=== PATIENT | female | born 1945 | race Caucasian/White ===

== ENCOUNTER → 2023-05-14 15:25 | Outpatient (REF) | payer MEDICARE, OTHER, SELFPAY ==
[2023-05-14 16:03] LABS: % Basophils 1.3 % (0-2); % Eosinophils 1.1 % (0-6); % Immature Granulocytes 0.2 % (0-0.5); % Lymphocytes 18.1 % (20.5-51.1); % Monocytes 8.9 % (1.7-9.3); % Neutrophils 70.4 % (42.2-75.2); Absolute Basophils 0.1 10^3/uL (0-0.2); Absolute Eosinophils 0.1 10^3/uL (0-0.7); Absolute Monocytes 0.5 10^3/uL (0.1-0.6); Absolute Neutrophils 3.9 10^3/uL (1.4-6.5); Hematocrit 39.3 % (37.0-47.0); Mean Corp Hgb Conc. 33.1 g/dL (33.0-37.0); Mean Corpuscular Hgb 30.1 pg (27.0-31.0); Mean Platelet Volume 11.4 fL (7.4-10.4); Nucleated Red Blood Cells % 0 %; Platelet Count 159 10^3/uL (130-400); Red Blood Cell Count 4.32 10^6/uL (4.20-5.40); Red Cell Dist. Width 17.2 % (11.5-14.5); White Blood Cell Count 5.6 10^3/uL (4.8-10.8)
[2023-05-14 16:20] LABS: ALT (SGPT) 24 U/L (0-35); AST (SGOT) 33 U/L (14-36); Albumin 4.1 g/dl (3.5-5.0); Alkaline Phosphatase 85 U/L (38-126); Blood Urea Nitrogen 29 mg/dl (7-17); Calcium 9.8 mg/dl (8.4-10.2); Carbon Dioxide 27 mmol/L (22-30); Chloride 101 mmol/L (98-107); Glucose 181 mg/dl (70-99); Potassium 4.9 mmol/L (3.5-5.1); Sodium 135 mmol/L (135-145); Total Bilirubin 0.9 mg/dl (0.2-1.3); Total Protein 7.5 g/dl (6.3-8.2); eGFR 51.11
[2023-05-14 16:50] LABS: TSH Reflex To Free T4 3.64 uIU/ml (0.47-4.68)
== END ==
LOC: RAD 15:25
PROVIDERS: ATTENDING PHYSICIAN Physician Assistant
DX: R06.02 Shortness of breath (principal); R53.1 Weakness; Z85.118 Personal history of other malignant neoplasm of bronchus and lung; Z87.891 Personal history of nicotine dependence; J02.9 Acute pharyngitis, unspecified; E03.9 Hypothyroidism, unspecified
CPT/HCPCS: 36415; 71046; 80053; 84443; 85025

== ENCOUNTER → 2023-06-14 11:29 | Outpatient (REF) | payer MEDICARE, OTHER, SELFPAY ==
[2023-06-14 12:32] LABS: Glycohemoglobin (HgbA1c) 6.6 % (4.0-5.6)
[2023-06-14 12:38] LABS: ALT (SGPT) 19 U/L (0-35); AST (SGOT) 29 U/L (14-36); Albumin 3.8 g/dl (3.5-5.0); Alkaline Phosphatase 65 U/L (38-126); Blood Urea Nitrogen 29 mg/dl (7-17); Calcium 9.1 mg/dl (8.4-10.2); Carbon Dioxide 25 mmol/L (22-30); Chloride 104 mmol/L (98-107); Glucose 154 mg/dl (70-99); HDL Cholesterol 81 mg/dl; LDL Cholesterol, Calculated 79 mg/dl; Potassium 4.9 mmol/L (3.5-5.1); Sodium 135 mmol/L (135-145); Total Bilirubin 0.7 mg/dl (0.2-1.3); Total Cholesterol 179 mg/dl (50-199); Total Protein 7.1 g/dl (6.3-8.2); Triglyceride 95 mg/dl (10-149); Very Low Density Lipoprotein 19 mg/dl (0-30); eGFR 45.76
[2023-06-14 13:08] LABS: TSH 3.87 uIU/ml (0.47-4.68)
== END ==
LOC: REG 11:29
PROVIDERS: ATTENDING PHYSICIAN Internal Medicine Endocrinology, Diabetes & Metabolism; FAMILY PHYSICIAN Nurse Practitioner Family
DX: E10.9 Type 1 diabetes mellitus without complications (principal); E06.3 Autoimmune thyroiditis
CPT/HCPCS: 36415; 80053; 80061; 83036; 84443

== ENCOUNTER → 2023-09-16 15:28 | Outpatient (REF) | payer MEDICARE, OTHER, SELFPAY ==
[2023-09-16 17:38] LABS: ALT (SGPT) 20 U/L (0-35); AST (SGOT) 32 U/L (14-36); Albumin 4.5 g/dl (3.5-5.0); Alkaline Phosphatase 76 U/L (38-126); Blood Urea Nitrogen 34 mg/dl (7-17); Calcium 10.4 mg/dl (8.4-10.2); Carbon Dioxide 28 mmol/L (22-30); Chloride 103 mmol/L (98-107); Glucose 86 mg/dl (70-99); Potassium 5.5 mmol/L (3.5-5.1); Sodium 140 mmol/L (135-145); Total Bilirubin 0.5 mg/dl (0.2-1.3); Total Protein 8.1 g/dl (6.3-8.2)
[2023-09-17 09:57] LABS: Glycohemoglobin (HgbA1c) 6.9 % (4.0-5.6)
== END ==
LOC: REG 15:28
PROVIDERS: ATTENDING PHYSICIAN Internal Medicine Endocrinology, Diabetes & Metabolism; FAMILY PHYSICIAN Nurse Practitioner Family
DX: E10.9 Type 1 diabetes mellitus without complications (principal)
CPT/HCPCS: 36415; 80053; 83036

== ENCOUNTER 2023-09-25 12:24 | Emergency (ER) | payer MEDICARE, OTHER, SELFPAY ==
[2023-09-25 12:32] VITALS: BP 144/82
[2023-09-25 12:43] VITALS: BMI 26.4
--- NOTE | 2023-09-25 12:59 | ED.GENMED ---
History of Present Illness
General
Chief Complaint: Musculo-Skeletal Complaint
Source: patient
Exam Limitations: none
Time Seen by Provider: 09/25/23 12:38
Nursing documentation reviewed up to this point in time: agreed with
History of Present Illness
History of Present Illness:
78-year-old female presents to the ER complaining of left wrist/hand injury. Patient is insulin-dependent diabetic for 50 years and her sugar read 'Low ' last night and she fell in her kitchen and hit her left hand. She ate dinner after . She
did not hit her head. She does complain of pain and swelling in her left hand area. She is right hand dominant.
Review of Systems
Review of Systems
Allergies reviewed?: Yes
All Other Systems: ROS reviewed and negative except as documented in HPI and ROS
Constitutional: Reports no symptoms; Denies fever, fatigue or chills
Musculoskeletal: Reports other (left hand swelling /pain )
Skin: Reports no symptoms
Neurological: Reports no symptoms
Psychiatric: Reports no symptoms
Phy Exam
General Physical Exam
General Presentation: no apparent distress
General age: appears stated age
General Skin: warm and dry
General Habitus: normal
General Mental: alert
General Hydration: appears well hydrated
Neurological Exam
Neurological Exam: alert and oriented x3
Skin Exam
Skin Exam: other (Left upper extremity strong pulses patient with obvious swelling to dorsal left hand no abrasions )
Psychiatric Exam
Psychiatric Exam: normal mood/affect
Course
Orders/Labs/Results
Orders:
Orders
09/25/23 12:37
Wrist, Left 3 Views CR [CR Wrist - Left Min 3 Views] Urgent
Comment:
Reason For Exam: injury
09/25/23 13:31
Splints/Slings/Crut- Treatment ONCE
Location: Left
Type of Splint: Thimb Spica
Vital Signs
Initial and Last Documented VS:
Initial Vital Signs
Temp Pulse Resp BP Pulse Ox
98 F 61 16 144/82 98
09/25/23 12:32 09/25/23 12:32 09/25/23 12:32 09/25/23 12:32 09/25/23 12:32
Last Documented Vital Signs
Temp Pulse Resp BP Pulse Ox
98 F 61 16 144/82 98
09/25/23 12:32 09/25/23 12:32 09/25/23 12:32 09/25/23 12:32 09/25/23 12:32
MDM/Problems Addressed
Differential Diagnosis Includes:
Not limited to hand/wrist sprain versus fracture fracture
MDM/Problems Addressed:
As documented patient is 78-year-old female who fell last night because her sugar was low. She is a insulin-dependent type 1 diabetic for 50 years had a monitor on her. She ate dinner afterwards and brought her sugar up. She however presents to
the ER because of continued left hand/wrist pain. She is tender throughout the dorsal left hand wrist. There is a questionable scaphoid fracture on x-ray will treat with a fiberglass splint, thumb spica close outpatient Ortho follow-up. She is
tender throughout the area there is swelling throughout the dorsal hand wrist as well. No head injury.
*Critical Care Note
Total Time (30-74mins, 75-104mins- exclusive of procedures): Not Applicable
ED Attending Note
-
Portions of this chart may have been created with voice recognition software.� Occasional wrong word or��sound alike� substitutions may have occurred due to the inherent limitations of voice recognition software.
Discharge Plan
Departure
Patient Disposition: Home (Routine Discharge)
Date of Disposition: 09/25/23
Time of Disposition: 13:35
Patient with high blood pressure during this ER visit?: Yes
Condition: Fair
Covid-19: Not Applicable
Discharge Problem:
Fracture of scaphoid
Instructions: Splint Care, Common Wrist Injuries ED
Prescriptions:
No Action
tramadol 50 mg Tablet
50 mg PO HS PRN (Reason: sleep)
levothyroxine 125 mcg Tablet
125 mcg PO DAILY
furosemide 20 mg Tablet
20 mg PO DAILY
magnesium 200 mg Tablet
400 mg PO QPM
alpha lipoic acid 300 mg Capsule
200 mg PO QPM
cholecalciferol (vitamin D3) [Vitamin D3] 125 mcg (5,000 unit) Tablet
5,000 unit PO QPM
melatonin 10 mg Tablet
10 mg PO QPM
Eliquis 5 mg Tablet
5 mg PO BID
Probiotic 3 billion cell Capsule
3,000 mmu cells PO QPM
coenzyme Q10 [CoQ-10] 100 mg Capsule
100 mg PO QPM
multivitamin Tablet
1 tab PO DAILY
biotin 1 mg Capsule
1 mg PO DAILY
insulin aspart U-100 [Novolog U-100 Insulin aspart] 100 unit/mL Solution
1 sliding scale dose continuous subcutaneous infusion DIRECTED
Rx Instructions:
18-25 units per day
Referrals:
Jody Guzman CRNP [Family Provider] -
Mack Key MD [Active] -
Activity Restrictions/Additional Instructions:
As discussed there is a questionable fracture of the scaphoid and wrist. You are tender throughout this region. For conservative treatment you are placed in a splint. Do not remove splint. Keep elevated. You may ice over the affected area.
Call orthopedics tomorrow for an appointment next 2 to 3 days and return if any worsening of symptoms.
Interventions
Interventions:
*Risk Screen - Suicide Last Done: 09/25/23 12:32
*General Assessment Last Done: 09/25/23 12:32
*Neglect/Abuse Screening Last Done: 09/25/23 12:32
ED- Fall Risk Assessment Last Done: 09/25/23 12:43
*ED COVID-19 Vaccine History Last Done: 09/25/23 12:43
ED-Musculoskeletal Assessment Last Done: 09/25/23 12:43
Discharge Date and Time
Print Language: GERMAN
== END 2023-09-25 14:25 | disposition home or self-care (01) ==
LOC: EMR 12:24
PROVIDERS: EMERGENCY PHYSICIAN Emergency Medicine; FAMILY PHYSICIAN Nurse Practitioner Family
DX: S62.002A Unspecified fracture of navicular [scaphoid] bone of left wrist, initial encounter for closed fracture (principal); W19.XXXA Unspecified fall, initial encounter; E10.9 Type 1 diabetes mellitus without complications
CPT/HCPCS: 99283; 73110

== ENCOUNTER → 2023-12-15 14:20 | Outpatient (REF) | payer MEDICARE, OTHER, SELFPAY ==
[2023-12-15 16:15] LABS: ALT (SGPT) 26 U/L (0-35); AST (SGOT) 35 U/L (14-36); Albumin 4.5 g/dl (3.5-5.0); Alkaline Phosphatase 63 U/L (38-126); Blood Urea Nitrogen 33 mg/dl (7-17); Calcium 9.7 mg/dl (8.4-10.2); Carbon Dioxide 25 mmol/L (22-30); Chloride 102 mmol/L (98-107); Glucose 165 mg/dl (70-99); HDL Cholesterol 98 mg/dl; LDL Cholesterol, Calculated 82 mg/dl; Sodium 140 mmol/L (135-145); Total Bilirubin 0.6 mg/dl (0.2-1.3); Total Cholesterol 202 mg/dl (50-199); Total Protein 7.6 g/dl (6.3-8.2); Triglyceride 111 mg/dl (10-149); Very Low Density Lipoprotein 22 mg/dl (0-30)
[2023-12-15 16:17] LABS: Microalbumin, Random Urine 0.9 mg/dl (0.6-1.7); Microalbumin/creatinine Ratio 13.1 mg/g
[2023-12-15 16:45] LABS: TSH 0.66 uIU/ml (0.47-4.68)
== END ==
LOC: REG 14:20
PROVIDERS: ATTENDING PHYSICIAN Internal Medicine Endocrinology, Diabetes & Metabolism; FAMILY PHYSICIAN Nurse Practitioner Family; REFERRING PHYSICIAN Internal Medicine Cardiovascular Disease
DX: E10.9 Type 1 diabetes mellitus without complications (principal)
CPT/HCPCS: 36415; 80053; 80061; 82043; 82570; 83036; 84443

== ENCOUNTER 2024-03-24 20:39 | Inpatient (IN) | payer MEDICARE, OTHER, SELFPAY ==
[2024-03-24] VITALS (14 sets, daily range): BP systolic 97–167; BP diastolic 11–119; BMI 18.5; BMI 20.5
[2024-03-24 14:38] LABS: % Basophils 0.8 % (0-2); % Eosinophils 0.2 % (0-6); % Immature Granulocytes 0.3 % (0-0.5); % Monocytes 6.3 % (1.7-9.3); % Neutrophils 77.4 % (42.2-75.2); Absolute Basophils 0.1 10^3/uL (0-0.2); Absolute Lymphocytes 0.9 10^3/uL (1.2-3.4); Absolute Monocytes 0.4 10^3/uL (0.1-0.6); Absolute Neutrophils 4.8 10^3/uL (1.4-6.5); Hematocrit 40.9 % (37.0-47.0); Hemoglobin 13.3 g/dL (12.0-16.0); Mean Corp Hgb Conc. 32.5 g/dL (33.0-37.0); Mean Corpuscular Hgb 30.3 pg (27.0-31.0); Mean Corpuscular Volume 93.2 fL (81.0-99.0); Nucleated Red Blood Cells % 0 %; Platelet Count 176 10^3/uL (130-400); Red Blood Cell Count 4.39 10^6/uL (4.20-5.40); Red Cell Dist. Width 16.1 % (11.5-14.5); White Blood Cell Count 6.2 10^3/uL (4.8-10.8)
--- NOTE | 2024-03-24 14:43 | ED.GENMED ---
History of Present Illness
General
Chief Complaint: Heart Rate Problem
Source: patient and family
Exam Limitations: none
Time Seen by Provider: 03/24/24 14:36
History of Present Illness
History of Present Illness:
See MDM
Past History
Past History
ED Past Medical History: Arrthythmia, Cancer and IDDM
ED Past Surgical History: Orthopedic
Social History
Tobacco: Non-smoker
Alcohol: None
Phy Exam
Physical Exam
Physical Exam:
See MDM
Course
Orders/Labs/Results
Orders:
Orders
03/24/24 13:49
EKG [Electrocardiogram (*1)] Urgent
Reason for Study: Tachycardia
EKG- Treatment ONCE
03/24/24 14:16
Complete Blood Count/With Diff Urgent
Comprehensive Metabolic Panel Urgent
Free T4 Urgent
Lipase Urgent
Comment: ADD ON
TSH Reflex To Free T4 Urgent
03/24/24 14:41
0.9% Sodium Chloride 1000 ml [Nss] 1,000 ml IV BOLUS
US Abdomen Complete/Upper Urgent
Comment:
Reason For Exam: RUQ pain
03/24/24 16:20
Add On- LAB Urgent
Tests Added?: Lipase
0.9% Sodium Chloride 1000 ml [Nss] 1,000 ml IV BOLUS
03/24/24 16:25
NT-proBNP Urgent
Comment: ADD ON
Troponin I Urgent
03/24/24 17:06
Add On- LAB Urgent
Tests Added?: pro BNP
Morphine Sulfate 2 mg IV NOW STA
Ondansetron Injectable [Zofran] 4 mg IV NOW STA
CR Chest - 2 Views Urgent
Comment:
Reason For Exam: SOB
03/24/24 17:36
CT Abd/pel Without Iv Or Oral Urgent
Comment:
Reason For Exam: general abd pain
Abnormal Lab Results
03/24/24
14:16
MCHC 32.5 L g/dL
(33.0-37.0)
RDW 16.1 H %
(11.5-14.5)
MPV 11.0 H fL
(7.4-10.4)
Absolute Lymphs (auto) 0.9 L 10^3/uL
(1.2-3.4)
Neutrophils % 77.4 H %
(42.2-75.2)
Lymphocytes % 15.0 L %
(20.5-51.1)
Potassium 5.6 H mmol/L
(3.5-5.1)
Carbon Dioxide 20 L mmol/L
(22-30)
BUN 47 H mg/dl
(7-17)
Creatinine 1.6 H mg/dL
(0.6-1.0)
Glucose 245 H mg/dl
(70-99)
AST 120 H U/L
(14-36)
ALT 70 H U/L
(0-35)
Alkaline Phosphatase 142 H U/L
(38-126)
Lipase 19 L U/L
(23-300)
TSH (Reflex) < 0.02 L uIU/ml
(0.47-4.68)
Free T4 2.58 H ng/dl
(0.78-2.19)
03/24/24 14:16
03/24/24 14:16
Vital Signs
Initial and Last Documented VS:
Initial Vital Signs
Temp Pulse Resp BP Pulse Ox
97.6 F 144 18 97/75 98
03/24/24 14:01 03/24/24 14:01 03/24/24 14:01 03/24/24 14:01 03/24/24 14:01
Last Documented Vital Signs
Temp Pulse Resp BP Pulse Ox
97.6 F 145 19 157/111 100
03/24/24 14:01 03/24/24 18:45 03/24/24 18:23 03/24/24 18:24 03/24/24 18:30
MDM/Problems Addressed
Differential Diagnosis Includes:
HPI and MDM Narrative:
78-year-old female presenting with palpitations. Patient noted the symptoms yesterday. This is associated with right shoulder pain, nausea and right upper abdominal pain. Exam, patient is clinically dry. Will start IV fluids. Patient has
significant amount of allergies which include allergies to both Cardizem and metoprolol.
Patient may require synchronized cardioversion.
Given the abdominal pain and shoulder pain, will obtain ultrasound rule out gallbladder pathology
Physical exam
General: Well appearing and non-toxic
HEENT: protecting airway. Dry mucous membranes
Neck: appears supple
CV: No evidence of cyanosis. Tachycardic and regular
Resp: No accessory muscle use
Abd: Non-distended. Right upper quadrant tenderness. No rebound
Extremities: No deformities
Neuro: alert
Psych: Normal affect
Skin: Intact
Problems Addressed including Acute and Chronic Conditions affecting care:
1. A-fib with RVR
Acuity: acute
Prognosis: unstable
Details: Patient may require synchronized cardioversion. Patient allergic to both metoprolol and Cardizem
2. Abdominal pain
Acuity: acute
Prognosis: stable
Details: Will obtain ultrasound to rule out gallbladder pathology
3. [ ]
Acuity: acute
Prognosis: stable
Details:
4. [ ]
Acuity: acute
Prognosis: stable
Details:
5. [ ]
Acuity:
Prognosis:
Details:
Updates
Given the persistent abdominal pain, CT was obtained. There is evidence of a loculated pleural effusion but no significant abdominal pathology to explain her pain. She is feeling better after morphine. Clinically, she is improving with IV fluids
even though x-ray concerning for pleural effusions.
I did offer and suggest synchronized cardioversion but patient declined as it has not helped in the past. Will admit for further evaluation. She will benefit from cardiac evaluation if she does not break on her own
In regards to her hyperglycemia, patient dosed herself with insulin and her insulin pump. At 7:15 PM, her pump is now stating that her sugar is 128. The insulin will help with the hyperglycemia and hyperkalemia
Differential Diagnosis (but not limited to): Acute calculus cholecystitis, A-fib with RVR, dehydration, hypothyroidism
Testing considered: CT abdomen/pelvis but will obtain ultrasound first
Drug therapy (if applicable): OTC meds, please see d/c instruction regarding Rx drugs
Amount and/or Complexity of Data Reviewed
Clinical info obtained from: Patient
External data reviewed: N/A
Labs I independently reviewed (but not limited to): Hyperglycemia, hyperkalemia
Radiology: X-ray independently reviewed: Chest x-ray consistent with right pleural effusion
Pulse Ox: not hypoxic
EKG independently reviewed: A-fib with RVR, normal axis, no STEMI
Publications Sales Representative: A-fib
Critical Care: N/A
Risk of Complication:
Social Determinants of health: Good social support
Discussed with other providers: Hospitalist
Escalation of Care includes Admit/Obs: given the pleural effusions and uncontrolled A-fib, will admit
Occasional wrong word or 'sound a like' substitutions may have occurred due to the inherent limitations of voice recognition software. Read the chart carefully and recognize, using context, where substitutions have occurred.
*Critical Care Note
Total Time (30-74mins, 75-104mins- exclusive of procedures): Not Applicable
ED Attending Note
-
Portions of this chart may have been created with voice recognition software.� Occasional wrong word or��sound alike� substitutions may have occurred due to the inherent limitations of voice recognition software.
Discharge Plan
Departure
Patient Disposition: Admit
Date of Disposition: 03/24/24
Time of Disposition: 19:16
Admit to: Telemetry
Presentation/result/management discussed w/ accepting MD/DO: Hospitalist
Discharge Problem:
A-fib, Pleural effusion, Acute hyperglycemia
Prescriptions:
No Action
tramadol 50 mg Tablet
50 mg PO HS PRN (Reason: sleep)
levothyroxine 125 mcg Tablet
125 mcg PO DAILY
furosemide 20 mg Tablet
20 mg PO DAILY
magnesium 200 mg Tablet
400 mg PO QPM
alpha lipoic acid 300 mg Capsule
200 mg PO QPM
cholecalciferol (vitamin D3) [Vitamin D3] 125 mcg (5,000 unit) Tablet
5,000 unit PO QPM
melatonin 10 mg Tablet
10 mg PO QPM
Eliquis 5 mg Tablet
5 mg PO BID
Probiotic 3 billion cell Capsule
3,000 mmu cells PO QPM
coenzyme Q10 [CoQ-10] 100 mg Capsule
100 mg PO QPM
multivitamin Tablet
1 tab PO DAILY
biotin 1 mg Capsule
1 mg PO DAILY
insulin aspart U-100 [Novolog U-100 Insulin aspart] 100 unit/mL Solution
1 sliding scale dose continuous subcutaneous infusion DIRECTED
Rx Instructions:
18-25 units per day
Referrals:
Jody Guzman CRNP [Family Provider] -
Interventions
Interventions:
*Risk Screen - Suicide Last Done: 03/24/24 14:01
*General Assessment Last Done: 03/24/24 14:01
*Neglect/Abuse Screening Last Done: 03/24/24 14:01
ED- Fall Risk Assessment Last Done: 03/24/24 14:45
*ED COVID-19 Vaccine History Last Done: 03/24/24 14:01
ED- Cardiac Assessment Last Done: 03/24/24 14:45
ED- Pulmonary Assessment Last Done: 03/24/24 14:45
Discharge Date and Time
Print Language: GERMAN
[2024-03-24 14:45] LABS: ALT (SGPT) 70 U/L (0-35); AST (SGOT) 120 U/L (14-36); Albumin 4.7 g/dl (3.5-5.0); Alkaline Phosphatase 142 U/L (38-126); Blood Urea Nitrogen 47 mg/dl (7-17); Calcium 10.1 mg/dl (8.4-10.2); Carbon Dioxide 20 mmol/L (22-30); Chloride 98 mmol/L (98-107); Estimated Creatinine Clearance -11 ml/min; Glucose 245 mg/dl (70-99); Potassium 5.6 mmol/L (3.5-5.1); Sodium 136 mmol/L (135-145); Total Bilirubin 1.3 mg/dl (0.2-1.3); Total Protein 7.8 g/dl (6.3-8.2)
[2024-03-24] MEDS: NSS 1000 IV ×3 (14:50→22:13)
[2024-03-24 15:24] LABS: TSH Reflex To Free T4 < 0.02 uIU/ml (0.47-4.68)
[2024-03-24 15:50] LABS: Free T4 2.58 ng/dl (0.78-2.19)
--- NOTE | 2024-03-24 16:52 | EDRN ---
Dr. Smith currently at the [facility] bedside
[2024-03-24 16:53] LABS: Lipase 19 U/L (23-300)
[2024-03-24 16:55] LABS: Troponin I < 0.012 ng/ml
[2024-03-24] MEDS: ZOFRAN 4 MG IV (17:26)
[2024-03-24] MEDS: MORPHINE SULFATE 2 MG IV (17:26)
[2024-03-24 17:28] LABS: NT-proBNP 3260 pg/ml
--- NOTE | 2024-03-24 17:30 | EDRN ---
this RN noticed that the pts Sp02 dipped to 91%, this RN notified Dr. Smith and the pt was placed on 3L NC, Sp02 came up to 96%
--- NOTE | 2024-03-24 18:24 | EDRN ---
the pts heart rate remains tachy in the 120-130's and occasionally the 150's, this RN notified Dr. Smith and no new orders were received, the pt is currently still on 3L NC and Sp02 is 99%, the pt is resting in stretcher in the lowest position,
side rails up x2, call chi within reach, HOB elevated, no s/s of distress, will continue to monitor the pt closely
--- NOTE | 2024-03-24 20:08 | HPS.HSE ---
Family Physician
-
Family Physician: ANA Peguero
Chief Complaint
-
Palpitations, Abdominal pain
History of Present Illness
Patient is an 78y F with PMH significant for A-Fib, hypothyroidism and Chua Syndrome who presents to ED complaining of palpitations and abdominal pain. Patient states that she noted racing heartbeat / palpitations yesterday and they have
persisted since that time. Today she noted pain in the LUQ area as well as the RUQ, R shoulder and R scapula areas. She felt nauseated - but had no emesis or diarrhea. With worsening symptoms patient presented to the ED for further evaluation and
treatment.
Patient notes prior history of atrial fibrillation. She is unfortunately intolerant of / allergic to metoprolol, diltiazem and amiodarone. She underwent ablation in March 2022 and states that she had no interim symptoms until yesterday.
Patient denies any recent cough, sore throat, fevers / chills, sick contacts, etc.
Medical History
Past Medical History
Past Medical History: Reports Other
Additional Past Medical History:
Paroxysmal Atrial Fibrillation
Hypothyroidism
DM-II
CKD III
RLE Fasciitis
Chua Syndrome
- Lung Cancer
- Colon Cancer
- Endometrial Cancer
Past Surgical History: Reports Other
Additional Past Surgical History:
Right Upper Lobectomy
Right Hemicolectomy
MARILYN / BSA
Multiple RLE Surgeries / I&D
Right Femur ORIF
DCCV x 3
PVI Ablation (03/2022)
Social History
Tobacco: Former Smoker (Patient unsure when she quit smoking.)
Alcohol: None
Drug: None
Family History
Family History: Not pertinent
Allergies / Home Medications
Allergies reflects when Allergies were last updated in [facility].
Home Medications with original date entered in [facility]
Allergy/Medication List:
Allergies
Allergy/AdvReac Type Severity Reaction Status Date / Time
acetaminophen Allergy GI upset Verified 03/24/24 14:03
diltiazem Allergy Hives Verified 03/24/24 14:03
dronedarone Allergy Hives Verified 03/24/24 14:03
gluten Allergy Hives Verified 03/24/24 14:03
Influenza Virus Vaccines Allergy Tongue/throat Verified 03/24/24 14:03
Swelling
Iodinated Contrast Media Allergy Hives Verified 03/24/24 14:03
latanoprost Allergy Hives Verified 03/24/24 14:03
metoprolol Allergy Hives Verified 03/24/24 14:03
naproxen [From Aleve] Allergy Hives Verified 03/24/24 14:03
povidone-iodine Allergy Blisters Verified 03/24/24 14:03
zinc Allergy Hives Verified 03/24/24 14:03
Home Medications
apixaban 5 mg tablet (Eliquis) 2.5 mg PO BID 04/10/22
levothyroxine 125 mcg tablet 125 mcg PO DAILY 04/10/22
insulin aspart U-100 100 unit/mL subcutaneous solution (Novolog U-100 Insulin aspart) 1 sliding scale dose continuous subcutaneous infusion DIRECTED 05/17/22
Review of Systems
-
History Source: Patient
A 12 point ROS was completed and negative except as noted: Yes
Constitutional: Denies Fever or Chills
EENT: Denies Sore Throat
Respiratory: Denies Cough or Trouble Breathing
Cardiac: Reports Palpitations; Denies Chest Pain, Diaphoresis or Syncope
Abdomen/GI: Reports Abdominal Pain and Nausea; Denies Vomiting, Diarrhea, Constipated, Bloody Stools, Black Stools or Anorexia
: Denies Dysuria, Frequency or Flank Pain
Musculoskeletal: Reports Joint Pain (R shoulder / scapula pain.); Denies Edema
Neurological: Denies Dizzy or Headache
Psych: Denies Depression or Anxiety
Physical Exam
Vital Signs
Vital Signs
Temp Pulse Resp BP Pulse Ox
97.6 F 145 19 157/111 100
03/24/24 14:01 03/24/24 18:45 03/24/24 18:23 03/24/24 18:24 03/24/24 18:30
Physical Exam
General: Other (78y F in no acute distress.)
HEENT: Other (Dry MM. Neck supple.)
Respiratory: Other (Few rales at both bases. No wheeze / rhonchi.)
Cardiac: S1/S2, Irregular Rhythm and Tachycardia; No Murmur
GI: Soft, Non Tender, Non Distended and Normal Bowel Sounds
Musculoskeletal: No Clubbing, No Cyanosis and No Edema
Neuro: AO x 3
Laboratory Results
-
03/24/24 14:16
03/24/24 14:16
Laboratory Results
Total Bilirubin 1.3 mg/dl (0.2-1.3) 03/24/24 14:16
AST 120 U/L (14-36) H 03/24/24 14:16
ALT 70 U/L (0-35) H 03/24/24 14:16
Alkaline Phosphatase 142 U/L (38-126) H 03/24/24 14:16
Troponin I < 0.012 ng/ml 03/24/24 16:25
Lipase 19 U/L (23-300) L 03/24/24 14:16
Impression/Plan
-
A/P: Patient is an 78y F with PMH significant for paroxysmal atrial fibrillation, DM-II and multiple malignancies who presents to ED complaining of palpitations and abdominal discomfort.
Paroxysmal Atrial Fibrillation with Rapid Ventricular Response
- Admit to IVU for further evaluation and treatment.
- Patient is unfortunately intolerant and / or allergic to most rate control strategies.
- She declined DCCV at present since it never worked in the past.
- Reviewed with Cardiology.
- Will give IV dose of digoxin now and follow for effect - additional doses may be necessary, but defer to Cardiology eval in AM.
- Monitor on tele for rate control / changes.
- Follow for any new / worsening symptoms.
- Continue Eliquis for stroke risk reduction.
Anion Gap Metabolic Acidosis
DIANA on CKD III
Hyperkalemia secondary to the above
- Patient clinically appears hypovolemic.
- R pleural fluid is chronic / unchanged.
- Continue IVF support and follow for changes in labs / lytes.
- Lactate / B-OH pending.
DM-II, Uncontrolled
- Continue home insulin pump for now.
- IVF support as noted above.
- DM COMPUTER SUPPORT ANALYST for pump recommendations.
- Update A1C.
Hypothyroidism
- Current TFTs suggest over-replacement of T4.
- Hold T4 supplementation acutely and then resume at decreased dose once rate control is achieved.
- Repeat TFTs in 4-6 weeks after dose change.
Abdominal Pain
Abnormal LFTs
- Symptoms seem c/w GB pathology given location (upper abdomen with R shoulder pain), associated nausea, etc.
- US and CT scan both proved unremarkable.
- Would check HIDA for further evaluation given suspicious symptoms.
Chua Syndrome
- History of multiple prior malignancies - none active at present.
- Chronic R lung changes on CXR and post-surgical changes noted on CT following previous cancer resections.
DVT Prophylaxis: Eliquis
Code Status: DNR
[2024-03-24 20:42] LABS: Lactic Acid 2.4 mmol/L (0.7-2.0)
[2024-03-24] MEDS: LANOXIN 250 MCG IV (20:45)
[2024-03-24 20:49] LABS: B-Hydroxybutyrate 0.18 mmol/L (0.02-0.27)
--- NOTE | 2024-03-24 21:22 | EDRN ---
patients daughter would like to be called with an update in the am --Tessie Oconnor at [phone]
[2024-03-24 22:09] LABS: Glucose - Point of Care 71 mg/dl (70-99)
[2024-03-24] MEDS: ELIQUIS 2.5 MG PO (23:16)
--- NOTE | 2024-03-24 23:18 | PTCARENOTE ---
received patient from the ED. AAOx3. denies any pain at this time. HR Afib on [id number]. patient asymptomatic. bp 148/83. patient denies feeling short of breath. appears mildly dyspneic. 94% on 3L NC. ambulated to the BR with a rolling walker;
steady on her feet. IVF at 100/hr started per order-see mar. reviewed plan of care with patient and verbalized understanding. NPO at midnight. educated patient to call RN with any changes.
patient states not taking evening dose of Eliquis. updated Nisreen Stuart LOCOMOTIVE ENGINEER ELECTRIC. order placed and given, see mar.
[2024-03-25] VITALS (11 sets, daily range): BP systolic 113–166; BP diastolic 75–111; BMI 20.5
[2024-03-25 03:36] LABS: Hematocrit 34.7 % (37.0-47.0); Hemoglobin 11.2 g/dL (12.0-16.0); Mean Corp Hgb Conc. 32.3 g/dL (33.0-37.0); Mean Corpuscular Hgb 29.8 pg (27.0-31.0); Mean Corpuscular Volume 92.3 fL (81.0-99.0); Mean Platelet Volume 10.8 fL (7.4-10.4); Platelet Count 159 10^3/uL (130-400); Red Blood Cell Count 3.76 10^6/uL (4.20-5.40); Red Cell Dist. Width 15.9 % (11.5-14.5); White Blood Cell Count 5.4 10^3/uL (4.8-10.8)
--- NOTE | 2024-03-25 03:53 | PTCARENOTE ---
patient NPO. discussed plan of care with Nisreen Stuart CUPROUS CHLORIDE OPERATOR. since patient NPO, patient was asked to turn off insulin pump. patient does not wish to turn off pump. 'i never do that.' educated patient to inform RN with any symptoms of low sugar.
verbalized understanding.
this morning, patient ambulated to the BR. when oob, HR 180s-190s on tele. patient denied any symptoms. assisted patient back to bed. bp 113/76. once in bed, patient states 'i can feel my heart racing.' HR lowered to 90s-120s Afib. bp 141/89.
patient states feeling better.
[2024-03-25 04:23] LABS: ALT (SGPT) 58 U/L (0-35); AST (SGOT) 66 U/L (14-36); Albumin 3.4 g/dl (3.5-5.0); Alkaline Phosphatase 110 U/L (38-126); Blood Urea Nitrogen 38 mg/dl (7-17); Calcium 8.7 mg/dl (8.4-10.2); Carbon Dioxide 22 mmol/L (22-30); Chloride 106 mmol/L (98-107); Direct Bilirubin 0.1 mg/dl (0.0-0.4); Estimated Creatinine Clearance 34 ml/min; Glucose 140 mg/dl (70-99); Potassium 5.1 mmol/L (3.5-5.1); Sodium 137 mmol/L (135-145); Total Bilirubin 0.5 mg/dl (0.2-1.3); Total Protein 6.2 g/dl (6.3-8.2); eGFR 45.76
[2024-03-25 06:34] LABS: Glucose - Point of Care 117 mg/dl (70-99)
--- NOTE | 2024-03-25 07:31 | CON.CAR ---
Addendum entered and electronically signed by Ant Wray MD 03/25/24 11:05:
I saw and examined the patient.
The GLOBAL REGULATORY LEAD or PA's note was reviewed and I agree with the note.
Comment: General: Well developed, well nourished in NAD.
Neck: Supple, no JVD, HJR, carotids +2 B/L, no bruits bilaterally.
Heart: Non displaced PMI, irregular, tachycardic, no murmurs, No S3, S4, no rubs.
Lungs: Clear to auscultation bilaterally, no wheeze, rhonchi, rubs bilaterally,
normal expiratory phase.
Abdomen: Normal bowel sounds, soft, non-tender, non-distended.
Extremities: No clubbing, cyanosis or edema bilaterally.
Neuro: Grossly nonfocal, awake, alert and oriented x3.
Meaghan has a history of A-fib status post ablation in March 2022 with multiple medication intolerances for A-fib. She felt something funny was going on in her heart. She did not have any palpitations. She was found to be in rapid A-fib. She
declined cardioversion in the ER
She continues to decline cardioversion. Her heart rate control is very poor in A-fib with heart rates as high as 200 with any activity. I do not think she will be able to be rate controlled with digoxin alone. I feel she should have
cardioversion. She will reconsider if heart rate is rapid on 1/3 AM. Will make n.p.o. for now. Will consider outpatient ablation but this could take at least 4 to 6 weeks.
Original Note:
Consultation
Consultation Request
Date/Time Consultation Requested: 03/24/24 at 2138
Date/Time Consultation Performed: 03/25/24 at 0808
Requesting Provider: Dr. Steven
Performing Provider: Dr. Wray
Reason for Consultation: Afib with RVR
Medical History
-
History of Present Illness:
Patient came to [facility] yesterday with right sided shoulder pain and abdominal pain and felt like her heart was beating irregularly, patient was admitted with DIANA and Afib and cardiology has been consulted. Patient has a h/o pAfib and has multiple
medication intolerances as noted above. Patient has also had previous CV at [facility]. Patient then had successful PVI at on 04/10/2022. Patient came to ER yesterday with an irregular feeling in her chest starting this past Friday, she did not
call a palpitations or racing heart, but felt that something unusual was going on in her chest. Additionally patient had a right upper quadrant radiating to the right shoulder pain and had nausea without vomiting. In [facility] ER patient
had DIANA with Cre of 1.6. Patient was admitted and had CT scan abd/pelvis that did not show acute findings. LFTs were elevated. Creatinine has improved to 1.2 with IVF's overnight. In ER patient was noted to be in AF with RVR. This is the
first documented recurrence of AF following PVI 04/10/2022. Patient has multiple medication intolerances and therefore was given digoxin 0.25 mg IV x 1 last night. Patient remains in AF today with rates greater than 150 at times. Patient also has
ongoing right upper quadrant and right shoulder discomfort and a HIDA scan is planned. She has not missed any doses of her Eliquis.
PMH:
Paroxysmal Afib
s/p PVI 04/10/22
allergy/intolerance to amiodarone, Multaq, Tikosyn, Cardizem, metoprolol
Chronic Eliquis OAC
h/o hypothyroid
elevated free T4, low TSH on labs 03/25/24
DM 2 on insulin pump
CKD 3a
Chua syndrome
s/p right hemicolectomy for colon cancer, s/p RU lobectomy for lung CA, s/p MARILYN-BSO for endometrial cancer
Past Medical History
Past Medical History: Other (in HPI)
Past Surgical History: Bowel Resection (for colon cancer), Cardiac (PVI 03/2022), Gynecological (MARILYN-BSO for endometrial cancer), Orthopedic and Other (RU lobectomy for cancer)
Social History
Tobacco: Former Smoker
Alcohol: None
Drug: None
Personal: Single
Family History
Family History: CAD and Cancer
Allergies / Home Medications
Allergy/AdvReac Type Severity Reaction Status Date / Time
acetaminophen Allergy GI upset Verified 03/24/24 14:03
diltiazem Allergy Hives Verified 03/24/24 14:03
dronedarone Allergy Hives Verified 03/24/24 14:03
gluten Allergy Hives Verified 03/24/24 14:03
Influenza Virus Vaccines Allergy Tongue/throat Verified 03/24/24 14:03
Swelling
Iodinated Contrast Media Allergy Hives Verified 03/24/24 14:03
latanoprost Allergy Hives Verified 03/24/24 14:03
metoprolol Allergy Hives Verified 03/24/24 14:03
naproxen [From Aleve] Allergy Hives Verified 03/24/24 14:03
povidone-iodine Allergy Blisters Verified 03/24/24 14:03
zinc Allergy Hives Verified 03/24/24 14:03
�Medication �Instructions �Recorded �Confirmed �Type
apixaban 5 mg tablet (Eliquis) 2.5 mg PO BID 04/10/22 03/24/24 History
levothyroxine 125 mcg tablet 125 mcg PO DAILY 04/10/22 03/24/24 History
insulin aspart U-100 100 unit/mL 1 sliding scale dose continuous 05/17/22 03/24/24 History
subcutaneous solution (Novolog subcutaneous infusion DIRECTED
U-100 Insulin aspart)
Review of Systems
-
History Source: Patient
All other systems: Negative unless noted
Physical Exam
Vital Signs
Temp Pulse Resp BP Pulse Ox
98.1 F 130 18 141/89 92
03/25/24 03:25 03/25/24 03:47 03/25/24 03:25 03/25/24 03:47 03/25/24 03:25
GEN: NAD. AAOx3
HEENT: EOMI, MMM
LUNGS: 3.5 L NC. CTA B/L, no wheezes/rales
CV: Afib on tele. Irreg irreg, S1/S2, no murmur
ABD: soft, BS+, NT, ND
EXT: No clubbing, cyanosis, lesions or edema B/L
NEURO: Gross non-focal
SKIN: Warm, dry and pink. No rash
Lab Results
03/25/24 03:14
03/25/24 03:14
Troponin I < 0.012 ng/ml 03/24/24 16:25
Nrw-G-[id number] Pept 3260 pg/ml 03/24/24 16:25
Impression / Plan
-
PCP: Jody Guzman GLOBAL REGULATORY LEAD at [facility]
Cardiology: Dr. Etienne at [facility]
EP: Dr. Radford
Impression:
Admitted with left shoulder pain, nausea, DIANA and Afib 03/24/24
DIANA
Afib with RVR
Right-sided abdominal pain
Elevated LFTs
Paroxysmal Afib
s/p PVI 04/10/22
allergy/intolerance to amiodarone, Multaq, Tikosyn, Cardizem, metoprolol
Chronic Eliquis OAC
h/o hypothyroid
elevated free T4, low TSH on labs 03/25/24
DM 2 on insulin pump
CKD 3a
Chua syndrome
s/p right hemicolectomy for colon cancer, s/p RU lobectomy for lung CA, s/p MARILYN-BSO for endometrial cancer
Echo 08/20/22: [facility] study, EF 55-60%, mild conc LVH, no significant valve disease
Plan:
-Patient came to [facility] yesterday with right sided shoulder pain and abdominal pain and felt like her heart was beating irregularly, patient was admitted with DIANA and Afib and cardiology has been consulted. Patient has a h/o pAfib and has multiple
medication intolerances as noted above. Patient has also had previous CV at [facility]. Patient then had successful PVI at on 04/10/2022. Patient came to ER yesterday with an irregular feeling in her chest starting this past Friday, she did not
call a palpitations or racing heart, but felt that something unusual was going on in her chest. Additionally patient had a right upper quadrant radiating to the right shoulder pain and had nausea without vomiting. In [facility] ER patient
had DIANA with Cre of 1.6. Patient was admitted and had CT scan abd/pelvis that did not show acute findings. LFTs were elevated. Creatinine has improved to 1.2 with IVF's overnight. In ER patient was noted to be in AF with RVR. This is the
first documented recurrence of AF following PVI 04/10/2022. Patient has multiple medication intolerances and therefore was given digoxin 0.25 mg IV x 1 last night. Patient remains in AF today with rates greater than 150 at times. Patient also has
ongoing right upper quadrant and right shoulder discomfort and a HIDA scan is planned. She has not missed any doses of her Eliquis.
-ECG and telemetry reviewed by me show AF with RVR
-This is the first documented recurrence of A-fib since PVI 04/10/2022. Patient is symptomatic and heart rates are not controlled despite digoxin 0.25 mg IV x 1 on 03/24/2024 PM.
-Ordered digoxin 0.5 mg IV x 1 now and digoxin 0.25 mg IV x 1 at 1400 to complete digoxin loading.
-Will plan on CV in the a.m.
-No missed doses of Eliquis
-Patient can follow-up with EP as an outpatient to discuss repeat ablation versus possible ablate and pace strategy given all the confounding factors. Reviewed these options with the patient and she is initially reluctant to even consider an ablate
and pace strategy, but would be interested in possible repeat PVI. Of note patient required cardiac MRI for anatomy prior to PVI due to inability to receive IV dye for traditional CT scan. Patient has an IV dye allergy.
-Agree with plans of primary service to check HIDA scan given elevated LFTs and RUQ pain.
-TSH is low and free T4 is high. Patient reports that Dr. Dow manages her history of hypothyroidism and that patient was told she cannot take her Synthroid dosing for the entire week once a week, so she describes a system of taking 7 Synthroid
tablets all at once on a Friday one week and then taking 6 Synthroid tablets on the Friday the next week and alternating [id number].
--- NOTE | 2024-03-25 08:10 | PTCARENOTE ---
patients pump was beeping, [id number].;/'
--- NOTE | 2024-03-25 08:10 | PTCARENOTE ---
Patients pump was beeping, left ant. INT infiltrated, D/C'd, and restart INT in left forearm #22P @ IV NSS at 100cc/hr. patient has her own insulin pump and is managing it herself. patient c/o no pain. patient remains NPO for hida scan. monitor
shows NSR/Afib, flips back and forth. patient remains on 3LNC, o2 sat 95%.
--- NOTE | 2024-03-25 08:48 | W.PN.HOSP.TC ---
Today's Communication/Plan
-
see bold
Assessment / Plan
Assessment / Plan
HPI: 78y F with PMH significant for A-Fib, hypothyroidism and Chua Syndrome who presents to ED complaining of palpitations and abdominal pain. Patient states that she noted racing heartbeat / palpitations yesterday and they have persisted
since that time. Today she noted pain in the LUQ area as well as the RUQ, R shoulder and R scapula areas. She felt nauseated - but had no emesis or diarrhea. With worsening symptoms patient presented to the ED for further evaluation and treatment.
Paroxysmal Atrial Fibrillation with Rapid Ventricular Response
- Appreciate cardiology input, continue digoxin
- Plan for cardioversion tomorrow, 03/26
- Continue Eliquis for stroke risk reduction.
Anion Gap Metabolic Acidosis
DIANA on CKD III
Hyperkalemia
- Hyperkalemia resolved, creatinine improving
- Continue IV fluids, trend creatinine, no nephrotoxic drugs/NSAIDs
DM-II, Uncontrolled
- Continue home insulin pump, carb controlled diet
- A1C7.0
Hypothyroidism
- Current TFTs suggest over-replacement of T4.
- Hold T4 supplementation acutely and then resume at decreased dose once rate control is achieved.
- Repeat TFTs in 4-6 weeks after dose change.
Abdominal Pain
Abnormal LFTs
- Symptoms seem c/w GB pathology given location (upper abdomen with R shoulder pain), associated nausea, etc.
- US and CT scan both proved unremarkable.
- HIDA neg, abdominal pain resolved
- LFTs improving, trend LFTs
Chua Syndrome
- History of multiple prior malignancies - none active at present.
- Chronic R lung changes on CXR and post-surgical changes noted on CT following previous cancer resections.
DVT Prophylaxis: Eliquis
Code Status: DNR
Total time spent to see the patient on the floor, examine the patient, review data and lab results, discuss treatment plan with patient, nursing staff around 51 minutes.
Physical Exam
General: No acute distress
HEENT: Normocephalic, Atraumatic, EOMI, MMM
Respiratory: Clear to Auscultation bilaterally
Cardiac: Normal S1/S2, Regular Rate and Rhythm
GI: Soft, Nontender, Nondistended, Normal Bowel Sounds
Extremities: No Clubbing, Cyanosis, or Edema
Neuro: Nonfocal/Grossly Intact
Psych: Calm, Cooperative
Derm: No Visible lesions
Anticipated Discharge: 24 - 48 hours
Subjective/Interval History
-
Date of Service: March 25, 2024
Patient complains of right shoulder pain. Denies abdominal pain. No chest pain, no shortness of breath. No palpitations. No fever, no vomiting.
Objective Data
-
Labs:
Laboratory Results
03/25/24
03:14
WBC 5.4
Hgb 11.2 L
Hct 34.7 L
Plt Count 159
Sodium 137
Potassium 5.1
Chloride 106
Carbon Dioxide 22
BUN 38 H
Creatinine 1.2 H
Glucose 140 H
Calcium 8.7
Total Bilirubin 0.5
AST 66 H
ALT 58 H
Alkaline Phosphatase 110
Vital Signs:
Vital Signs
Temp Pulse Resp BP Pulse Ox
97.4 F 130 16 141/89 97
03/25/24 07:43 03/25/24 03:47 03/25/24 07:43 03/25/24 03:47 03/25/24 07:43
I&O
03/24/24 03/25/24 03/26/24
06:59 06:59 06:59
Intake Total 150 / 150
Balance 150 / 150
--- NOTE | 2024-03-25 09:03 | PTCARENOTE ---
patients HR in the 200's when getting up to BSC, adamant about staying on BSC to void. patient returned back to bed and after 15minutes HR returned to 123 to 145. Digoxin IV ordered, given as ordered.
[2024-03-25] MEDS: NSS 1000 IV ×2 (09:08→22:53)
[2024-03-25] MEDS: PT'S OWN INSULIN PUMP - NovoLOG SC ×2 (09:08→13:44)
[2024-03-25] MEDS: FLUSH (NSS) 1 FLUSH IV (09:10)
[2024-03-25] MEDS: LANOXIN 500 MCG IV (09:10)
[2024-03-25] MEDS: PROTONIX IV IV (09:11)
[2024-03-25] MEDS: NSS (PRESERVATIVE FREE) IV (09:11)
[2024-03-25] MEDS: ELIQUIS 2.5 MG PO ×2 (09:12→19:51)
--- NOTE | 2024-03-25 10:56 | CM ---
Chart reviewed. Patient is independent of ADLS, lives with her daughter in a 3 [address], 1st floor set up, 0 SHIVAM, ambulates with a SPC and RW outside of the home. Patient is not current with VN. Plan is for the patient to return home. CM to follow
--- NOTE | 2024-03-25 12:32 | PN.DE.MGMTRT ---
Insulin Management
- -
03/25/2023 Diabetes Management Consult - Patient using insulin pump
Patient admitted 03/24 with tachycardia, nausea, r upper abdomen and r shoulder pain. PMH colon, endometrial and lunch CA, type 1 diabetes and COPD. A1C on admission 7%, cr 1.2, eGFR 45.76. Prior to admission was using the Tandem tslim insulin
pump with control IQ [employer]osoft XC infusion sets Novolog and DexCom G7. She sees Dr. Dow, endocrine, for ongoing diabetes management.
Patient is awake alert and oriented sitting in bed. NPO for procedure. Glucose per pump 117 at the time of my visit.
Glucose has ranged 71 to 117. Patient can continue to manage insulin pump and deliver meal and correction boluses. Pump worksheet at bedside.
Discussed with patients nurse.
Diabetes History
- -
Type of Diabetes: 1
Pre-Admission Diabetes Regimen
03/24/24 03/25/24
14:16 03:14
Creatinine 1.6 H 1.2 H
Lab Results
Hemoglobin A1c 7.0 % (4.0-5.6) H 03/25/24 03:14
Insulin Pump Settings
IP Diabetes Regimen
03/24/24 03/24/24 03/25/24
14:16 22:07 03:14
Glucose 245 H 140 H
POC Glucose 71
03/25/24
06:32
Glucose
POC Glucose 117 H
Meal type: Breakfast
Amount consumed: 0
Patient Education
[2024-03-25 13:41] LABS: Glucose - Point of Care 115 mg/dl (70-99)
[2024-03-25] MEDS: LANOXIN 250 MCG IV (14:09)
--- NOTE | 2024-03-25 14:11 | PTCARENOTE ---
Addendum entered by Francia Cleaning RN 03/25/24 15:04:
morphine 2mg IV given as ordered for right shoulder pain. patient able to ambulate to BSC, 2 steps and voided for first time today. IV NSS @ 100cc/hr remains on.
Original Note:
Digoxin IV given as ordered, HR remains 133. also patient c/o right shoulder pain, TT Dona GARY.
[2024-03-25] MEDS: MORPHINE SULFATE 2 MG IV (14:51)
[2024-03-25] MEDS: PT'S OWN INSULIN PUMP - NovoLOG 4.1 UNIT SC (17:10)
--- NOTE | 2024-03-25 17:33 | PTCARENOTE ---
decreased IV NSS to 60cc/hr as ordered.
[2024-03-25] MEDS: NSS IV (18:38)
[2024-03-25 21:21] LABS: Glucose - Point of Care 173 mg/dl (70-99)
[2024-03-25] MEDS: PT'S OWN INSULIN PUMP - NovoLOG 1 UNIT SC (22:52)
[2024-03-25] MEDS: ULTRAM 25 MG PO (22:53)
[2024-03-26] VITALS (7 sets, daily range): BP systolic 137–159; BP diastolic 75–111; BMI 20.9
--- NOTE | 2024-03-26 03:00 | PTCARENOTE ---
Assumed care of pt at change of shift. Afib on tele with HR 90s-low 100s at rest and up to 140s with activity. Pt w/ complaints of 8/10 R shoulder pain which she states is the same pain she has been having since admission. Meaghan Alvarado NP
notified and Tramadol ordered and administered per orders, see MAR. Pt OOB to commode with x1 assist and rolling walker. Plan of care discussed and pt verbalizes understanding of NPO status at midnight for cardioversion today. Call chi within
reach.
[2024-03-26 05:53] LABS: Blood Urea Nitrogen 26 mg/dl (7-17); Calcium 8.4 mg/dl (8.4-10.2); Carbon Dioxide 25 mmol/L (22-30); Chloride 107 mmol/L (98-107); Estimated Creatinine Clearance 42 ml/min; Glucose 109 mg/dl (70-99); Magnesium 1.9 mg/dl (1.6-2.3); Phosphorus 2.8 mg/dl (2.5-4.5); Potassium 4.8 mmol/L (3.5-5.1); Sodium 137 mmol/L (135-145); eGFR 56.95
--- NOTE | 2024-03-26 07:42 | PN.DE.MGMTRT ---
Insulin Management
- -
03/26/2024 Diabetes Management Consult - Patient using insulin pump Follow up
Patient admitted 03/24 with tachycardia, nausea, r upper abdomen and r shoulder pain. PMH colon, endometrial and lunch CA, type 1 diabetes and COPD. A1C on admission 7%, cr 1.2, eGFR 45.76. Prior to admission was using the Tandem tslim insulin
pump with control IQ [employer] XC infusion sets Novolog and DexCom G7. She sees Dr. Dow, endocrine, for ongoing diabetes management.
Patient is awake alert and oriented sitting in bed. Glucose per pump 109 at the time of my visit.
Glucose has ranged 117 to 173. Patient can continue to manage insulin pump and deliver meal and correction boluses. Pump worksheet at bedside.
Discussed with patients nurse.
Pump settings:
Basal Correction CHO target
12am .225 50 17 110
6AM .35 50 18 110
5PM .25 50 17 110
9pm .2 50 17 110
24 HOUR BASAL TOTAL 6.8
Diabetes History
- -
Type of Diabetes: 1
Pre-Admission Diabetes Regimen
03/26/24
05:07
Creatinine 1.0
Lab Results
Hemoglobin A1c 7.0 % (4.0-5.6) H 03/25/24 03:14
Insulin Pump Settings
IP Diabetes Regimen
03/25/24 03/25/24 03/26/24
13:40 21:20 05:07
Glucose 109 H
POC Glucose 115 H 173 H
Meal type: Dinner
Meal type: Breakfast
Amount consumed: 90%
Amount consumed: 0
Patient Education
[2024-03-26] MEDS: NSS (PRESERVATIVE FREE) 10 ML IV (07:45)
[2024-03-26] MEDS: PROTONIX IV 40 MG IV (07:45)
[2024-03-26] MEDS: ELIQUIS 2.5 MG PO ×2 (07:45→20:18)
[2024-03-26 07:52] LABS: Glucose - Point of Care 125 mg/dl (70-99)
--- NOTE | 2024-03-26 08:13 | PTCARENOTE ---
pt off unit for cardioversion.
--- NOTE | 2024-03-26 09:45 | W.PN.CARDCBS ---
Today's Communication / Plan
-
Successful direct-current cardioversion
Stop digoxin
Stable for discharge from my perspective
Should will follow-up with her primary tetryl boiling tub operator and can be reevaluated by electrophysiology at as an outpatient
Impression / Plan
-
PCP: Jody Guzman METEOROLOGICAL OBSERVER at [facility]
Cardiology: Dr. Etienne at [facility]
EP: Dr. Radford
Impression:
Admitted with left shoulder pain, nausea, DIANA and Afib 03/24/24
DIANA
Afib with RVR
Right-sided abdominal pain
Elevated LFTs
Paroxysmal Afib
s/p PVI 04/10/22
allergy/intolerance to amiodarone, Multaq, Tikosyn, Cardizem, metoprolol
Chronic Eliquis OAC
h/o hypothyroid
elevated free T4, low TSH on labs 03/25/24
DM 2 on insulin pump
CKD 3a
Chua syndrome
s/p right hemicolectomy for colon cancer, s/p RU lobectomy for lung CA, s/p MARILYN-BSO for endometrial cancer
Echo 08/20/22: [facility] study, EF 55-60%, mild conc LVH, no significant valve disease
Patient came to [facility] yesterday with right sided shoulder pain and abdominal pain and felt like her heart was beating irregularly, patient was admitted with DIANA and Afib and cardiology has been consulted. Patient has a h/o pAfib and has multiple
medication intolerances as noted above. Patient has also had previous CV at [facility]. Patient then had successful PVI at on 04/10/2022. Patient came to ER yesterday with an irregular feeling in her chest starting this past Friday, she did not
call a palpitations or racing heart, but felt that something unusual was going on in her chest. Additionally patient had a right upper quadrant radiating to the right shoulder pain and had nausea without vomiting. In [facility] ER patient
had DIANA with Cre of 1.6. Patient was admitted and had CT scan abd/pelvis that did not show acute findings. LFTs were elevated. Creatinine has improved to 1.2 with IVF's overnight. In ER patient was noted to be in AF with RVR. This is the
first documented recurrence of AF following PVI 04/10/2022. Patient has multiple medication intolerances and therefore was given digoxin 0.25 mg IV x 1 last night. Patient remains in AF today with rates greater than 150 at times. Patient also has
ongoing right upper quadrant and right shoulder discomfort and a HIDA scan is planned. She has not missed any doses of her Eliquis.
Plan:
-Presenting with AFRVR not well controlled despite addition of digoxin - will stop digoxin
-Underwent successful DCCV this AM
-Cont Eliquis
-Patient can follow-up with EP as an outpatient to discuss repeat ablation versus possible ablate and pace strategy given all the confounding factors. Reviewed these options with the patient and she is initially reluctant to even consider an ablate
and pace strategy, but would be interested in possible repeat PVI. Of note patient required cardiac MRI for anatomy prior to PVI due to inability to receive IV dye for traditional CT scan. Patient has an IV dye allergy.
-TSH is low and free T4 is high. Patient reports that Dr. Dow manages her history of hypothyroidism and that patient was told she cannot take her Synthroid dosing for the entire week once a week, so she describes a system of taking 7 Synthroid
tablets all at once on a Friday one week and then taking 6 Synthroid tablets on the Friday the next week and alternating [id number].
Stable for discharge from my perspective
Should follow-up with her primary tetryl boiling tub operator
Progress Note - Glaze Sprayer
Subjective
Date of Service: March 26, 2024
No acute overnight events. Heart rate remained rapid overnight despite digoxin. Underwent direct-current cardioversion this morning, seen postprocedure. Tells me she feels much better back in sinus rhythm.
Objective
Labs:
03/25/24 03:14
03/26/24 05:07
Labs
Hgb 11.2 g/dL (12.0-16.0) L 03/25/24 03:14
Hct 34.7 % (37.0-47.0) L 03/25/24 03:14
Plt Count 159 10^3/uL (130-400) 03/25/24 03:14
Sodium 137 mmol/L (135-145) 03/26/24 05:07
Potassium 4.8 mmol/L (3.5-5.1) 03/26/24 05:07
BUN 26 mg/dl (7-17) H 03/26/24 05:07
Creatinine 1.0 mg/dL (0.6-1.0) 03/26/24 05:07
Glucose 109 mg/dl (70-99) H 03/26/24 05:07
Troponins
03/24/24 03/24/24
14:16 16:25
Troponin I Cancelled < 0.012
Vital Signs and I&O:
Vital Signs
Temp Pulse Resp BP Pulse Ox
97.9 F 122 20 157/102 97
03/26/24 07:29 03/26/24 06:00 03/26/24 07:29 03/26/24 04:59 03/26/24 07:29
Vital Signs
Temp Pulse Resp BP Pulse Ox
97.9 F 122 20 157/102 97
03/26/24 07:29 03/26/24 06:00 03/26/24 07:29 03/26/24 04:59 03/26/24 07:29
Intake & Output
03/24/24 03/25/24 03/26/24 03/27/24
06:59 06:59 06:59 06:59
Intake Total 150 / 150 1340 / 1340
Output Total 1325 / 1325
Balance 150 / 150 15 / 15
Physical Exam
Physical Exam
Gen: NAD, AAOx3
HEENT: NC/AT, sclera anicteric
Neck: No JVD
CV: RRR, NL s1/s2, no M/R/G
Lungs: CTAB
Abd: S/ND
Ext: No LE edema
Skin: Warm, dry
Neuro: Non-focal
[2024-03-26] MEDS: PT'S OWN INSULIN PUMP - NovoLOG SC ×3 (10:11→23:23)
--- NOTE | 2024-03-26 10:51 | PTCARENOTE ---
pt back from CV. pt is now sr w/ PACs, vss. 92% on 3LO2. pt resting in bed comfortably. pt educated on plan of care. notified dr. elkins due to not being able to wean pt off 02. call chi within reach.
--- NOTE | 2024-03-26 11:44 | CM ---
Chart reviewed. Patient is independent of ADLS, lives with her daughter in a 3 [address], 1st floor set up, ambulates with a RW and SPC. Patient is not current with VN and is not interested. Plan is for the patient to return home. CM to follow
--- NOTE | 2024-03-26 15:25 | CON.PUL ---
Consultation
Consultation Request
Date/Time Consultation Requested: 03/26/2024 - 144
Date/Time Consultation Performed: 03/26/2024 - 151
Requesting Provider: Dr. Steven
Performing Provider: Dr. Reveles
Reason for Consultation: Hypoxia
Medical History
-
Chief Complaint: Right shoulder pain and heart is racing/nausea
History of Present Illness:
78-year-old female former tobacco smoker with a past medical history of severe COPD, A-fib on Eliquis, chronic HFpEF, history of lung SCC, DM type II, history of colon cancer, and CKD who presented with right shoulder pain, a racing heart and
nausea. 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 EKG showed rapid A-fib. Cardiology consulted and cardioversion was arranged. She underwent cardioversion on 03/26/2024. She has continued to require
supplemental oxygen; CXR on 03/26/2024 showed subtle increased interstitial markings within the left lower lobe suggesting interstitial fibrosis. Pulmonary service consulted for additional management/recommendations.
When I saw the patient she was resting in bed in no acute distress. She was currently on room air but saturations were 80%. RN then placed her back onto oxygen with saturations improving back to the low 90s with 1 L/min. She still endorses
right-sided shoulder pain in the back of her shoulder. SOB has improved and she denies SOB currently. Also denies chest pain, SHETTY, abdominal pain, nausea, vomiting, fevers or chills. She says she had a wood-burning stove as a child. She tells me
she quit smoking in the 1970s.
Patient follows with us in the [facility] office with last visit on 10/15/[address] Stevens. She has a history of squamous cell carcinoma stage III, diagnosed in April 2022. She was intolerant of Keytruda. Also has history of A-fib follows with
cardiology (Dr. Radford). Has prior 29-phth-enhz smoking history, quit about 30 years ago. She does have a history of COPD but did not want to start inhalers as she was worried about her heart rate getting worse. She did not have any pulmonary
symptoms at that time although when she was walking she clearly was wheezing and short of breath. According to the family, her difficulty breathing with ambulation is chronic and present for many years. The patient is unaware of her dyspnea. She
was told to follow-up in July 2023 but this never happened. Her spirometry on file is from 04/17/2022 showing severe COPD with postbronchodilator FEV1: 0.8 L / 36% predicted. She also has a mild�moderate restrictive lung defect with
postbronchodilator FVC: 1.74 L / 59% predicted.
PMHx: Severe COPD not on inhalers, hypothyroidism, A-fib on Eliquis, CHF, history of lung squamous cell carcinoma intolerant to Keytruda, DM type II with insulin pump, history of colon cancer, history of Chua syndrome
PSHx: Laminectomy, hip surgery, hysterectomy, ORIF of bone fracture, bronchoscopy
Past Medical History
Past Medical History: Other (Above as per HPI)
Past Surgical History: Other (Above as per HPI)
Social History
Tobacco: Former Smoker (71-mbwh-hids history, quit about 32 years ago)
Alcohol: None
Drug: None
Family History
Family History: CAD (Father + mother), Cancer (Mother: Colon cancer) and Other (Brother: Celiac disease; father + mother: History of CVA)
Allergies / Home Medications
Allergies
Allergy/AdvReac Type Severity Reaction Status Date / Time
acetaminophen Allergy GI upset Verified 03/24/24 14:03
diltiazem Allergy Hives Verified 03/24/24 14:03
dronedarone Allergy Hives Verified 03/24/24 14:03
gluten Allergy Hives Verified 03/24/24 14:03
Influenza Virus Vaccines Allergy Tongue/throat Verified 03/24/24 14:03
Swelling
Iodinated Contrast Media Allergy Hives Verified 03/24/24 14:03
latanoprost Allergy Hives Verified 03/24/24 14:03
metoprolol Allergy Hives Verified 03/24/24 14:03
naproxen [From Aleve] Allergy Hives Verified 03/24/24 14:03
povidone-iodine Allergy Blisters Verified 03/24/24 14:03
zinc Allergy Hives Verified 03/24/24 14:03
Home Medications
�Medication �Instructions �Recorded �Confirmed �Last Taken �Type
apixaban 5 mg tablet (Eliquis) 2.5 mg PO BID Blood Clot 04/10/22 03/24/24 05/13/22 History
Prevention/Tx
levothyroxine 125 mcg tablet 125 mcg PO DAILY Thyroid 04/10/22 03/24/24 05/17/22 05:03 History
insulin aspart U-100 100 unit/mL 1 sliding scale dose continuous 05/17/22 03/24/24 05/17/22 History
subcutaneous solution (Novolog subcutaneous infusion DIRECTED
U-100 Insulin aspart) Diabetes
Review of Systems
-
History Source: Patient
All other systems: Negative unless noted
Vitals / Labs / Diagnostic Testing
Vital Signs
Temp Pulse Resp BP Pulse Ox
98.2 F 83 20 159/75 92
03/26/24 15:36 03/26/24 18:00 03/26/24 15:36 03/26/24 15:44 03/26/24 15:36
Lab Data
03/25/24 03:14
03/26/24 05:07
Diagnostic Testing:
Physical Exam
-
HEENT: Normocephalic and Anicteric
Cardiovascular: S1/S2, Regular Rhythm and Peripheral Edema (negative)
Respiratory: Wheeze (negative), Rales (Bibasilar), Rhonchi (negative) and Non-Labored Respirations
GI: Soft, Non Distended, Non Tender and Normal Bowel Sounds
Neurology: AO x 3 and Tremors (negative)
Skin: Warm and Dry
General: Respiratory Distress (negative), Comfortable, Fever (negative) and Chills (negative)
Assessment
-
Assessment: 78-year-old female former tobacco smoker with a past medical history of severe COPD, A-fib on Eliquis, chronic HFpEF, history of lung SCC, DM type II, history of colon cancer, and CKD who presented with right shoulder pain, a racing
heart and nausea. 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 EKG showed rapid A-fib. Cardiology consulted and cardioversion was arranged. She underwent cardioversion on 03/26/2024. She has continued to
require supplemental oxygen; CXR on 03/26/2024 showed subtle increased interstitial markings within the left lower lobe suggesting interstitial fibrosis. Pulmonary service consulted for additional management/recommendations.
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
Impression:
#Centrilobular emphysema with severe COPD (via spirometry from 04/17/2022) - not on maintenance inhalers as patient had declined previously due to fear of worsening heart rate
#Mild�moderate restrictive lung defect (post-BD FVC: 1.74 L/59% predicted via spirometry from 04/17/2022)
#History of lung squamous of carcinoma s/p right upper lobe lobectomy
#Rapid A-fib with history of ablation s/p cardioversion done today (03/26/2024)
#Acute anemia
#Primary hyperthyroidism likely due to exogenous use (TSH: <0.02, free T4: 2.58)
#History of colon cancer
#DM type II
#Former tobacco use (96-ovhm-adhq history, quit about 32 years ago)
Plan:
- She does not have any significant interstitial lung disease as recent PET/CT from 10/09/2023 did not show any evidence of interstitial lung disease
- The interstitial prominence seen in the left lower lobe currently is likely due to interstitial edema
- She does, however, have a history of severe COPD and this is likely why she is hypoxic currently, in addition to this right lower lobe pleural effusion, however this is small and unlikely to be significantly contributing to her hypoxia/SOB
- Re-check CT Chest to further assess lung parenchyma
- She does have chronic SOB with wheezing and dyspnea on exertion but the patient is not bothered by this as it is chronic and has been present for many years
- She does not take any maintenance inhalers as she does not wanted to affect her heart rate, however in the setting of her current hypoxia I think it is reasonable to start her on nebulized bronchodilators at this time
- I will start her on Xopenex/Atrovent and upon discharge we should send her home on a LABA/LAMA with Stiolto versus Anoro with prn Airsupra vs Albuterol
- prn nebulized bronchodilators while she remains hospitalized � not currently bronchospastic
- She should continue following up with us in the pulmonary office as last visit was in September [address] Stevnes
- She needs updated PFTs and 6 MWT
- Maintain SpO2 88-95% with supplemental O2 and wean as tolerated
- She will need a walking pulse oximetry prior to discharge
- Her TFTs show an elevated free T4 with undetectable TSH level; levothyroxine home dose is currently being held, this should be adjusted prior to restarting with dose lowered and repeat TFTs as an outpatient in about 6 weeks
- Perhaps this was an underlying etiology for her rapid A-fib
- Trend H/H and transfuse to keep her Hb>7g/dL
- Incentive spirometer q1hr while awake
- Replete electrolytes with K>4, Mg>2
- Maintain euglycemia with goal BG >100 and <180
- DVT ppx: Eliquis
Pulmonary service will continue to follow along. Outpatient follow-up will be arranged as last visit was on 10/15/[address] Stevens.
Data:
Echo 08/20/22: GVH study, EF 55-60%, mild conc LVH, no significant valve disease
CXR 03/26/2024:
Status post partial right lung resection with stable appearance from recent radiograph of March 24, 2024.
There is a small left pleural effusion, new since recent radiograph.
Subtle increased interstitial markings within the left lower lung. This may represent interstitial fibrosis. Interstitial edema seems less likely with fairly distinct appearance of the central pulmonary vasculature.
Total time spent today was 56 minutes for this encounter. Time includes reviewing laboratory test/imaging results, reviewing pertinent medical records, obtaining and reviewing medical history, performing an appropriate exam, ordering medications,
tests and procedures. Time also includes documentation of this encounter, coordinating patient care and communicating with other healthcare professionals. Total time does not include separately billed tests performed on this date of service.
--- NOTE | 2024-03-26 15:58 | W.PN.HOSP.TC ---
Today's Communication/Plan
-
Check chest CT, consult pulmonology
Assessment / Plan
Assessment / Plan
HPI: 78y F with PMH significant for A-Fib, hypothyroidism and Chua Syndrome who presents to ED complaining of palpitations and abdominal pain. Patient states that she noted racing heartbeat / palpitations yesterday and they have persisted
since that time. Today she noted pain in the LUQ area as well as the RUQ, R shoulder and R scapula areas. She felt nauseated - but had no emesis or diarrhea. With worsening symptoms patient presented to the ED for further evaluation and treatment.
#Acute hypoxic respiratory insufficiency
- Currently requiring 2 L of oxygen, she does not wear oxygen at home
- Chest x-ray shows partial right lung resection, subtle increased interstitial markings within the left lower lobe which could represent interstitial fibrosis
- Check chest CT, consult pulmonology
Paroxysmal Atrial Fibrillation with Rapid Ventricular Response
- Appreciate cardiology input
- Status post cardioversion 03/26, currently in normal sinus rhythm
- Continue Eliquis for stroke risk reduction
- Cardiology recommends stopping digoxin, follow-up with cardiology in the office
Anion Gap Metabolic Acidosis
DIANA on CKD III
Hyperkalemia
- Hyperkalemia resolved, creatinine improving
- DIANA resolved status post IV fluid
DM-II, Uncontrolled
- Continue home insulin pump, carb controlled diet
- A1C7.0
Hypothyroidism
- Current TFTs suggest over-replacement of T4.
- Hold T4 supplementation acutely and then resume at decreased dose once rate control is achieved.
- Repeat TFTs in 4-6 weeks after dose change.
Abdominal Pain
Abnormal LFTs
- Symptoms seem c/w GB pathology given location (upper abdomen with R shoulder pain), associated nausea, etc.
- US and CT scan both proved unremarkable.
- HIDA neg, abdominal pain resolved
- LFTs improving, trend LFTs
Chua Syndrome
- History of multiple prior malignancies - none active at present.
- Chronic R lung changes on CXR and post-surgical changes noted on CT following previous cancer resections.
DVT Prophylaxis: Eliquis
Code Status: DNR
Total time spent to see the patient on the floor, examine the patient, review data and lab results, discuss treatment plan with patient, nursing staff around 50 minutes.
Physical Exam
General: No acute distress
HEENT: Normocephalic, Atraumatic, EOMI, MMM
Respiratory: Clear to Auscultation bilaterally
Cardiac: Normal S1/S2, Regular Rate and Rhythm
GI: Soft, Nontender, Nondistended, Normal Bowel Sounds
Extremities: No Clubbing, Cyanosis, or Edema
Neuro: Nonfocal/Grossly Intact
Psych: Calm, Cooperative
Derm: No Visible lesions
Anticipated Discharge: Within 24 hours
Subjective/Interval History
-
Date of Service: March 26, 2024
Patient had successful cardioversion this morning. Denies shortness of breath. She had some right shoulder pain, resolved. No nausea, no vomiting. No abdominal pain. No fever.
Objective Data
-
Labs:
Laboratory Results
03/26/24
05:07
Sodium 137
Potassium 4.8
Chloride 107
Carbon Dioxide 25
BUN 26 H
Creatinine 1.0
Glucose 109 H
Calcium 8.4
Vital Signs:
Vital Signs
Temp Pulse Resp BP Pulse Ox
98.2 F 122 20 157/102 92
03/26/24 15:36 03/26/24 06:00 03/26/24 15:36 03/26/24 04:59 03/26/24 15:36
I&O
03/25/24 03/26/24 03/27/24
06:59 06:59 06:59
Intake Total 150 / 150 1340 / 1340 180 / 180
Output Total 1325 / 1325 350 / 350
Balance 150 / 150 15 15 -170 / -170
[2024-03-26 16:14] LABS: Glucose - Point of Care 125 mg/dl (70-99)
[2024-03-26] MEDS: PT'S OWN INSULIN PUMP - NovoLOG 3.33 UNIT SC (16:15)
[2024-03-26] MEDS: ULTRAM 25 MG PO (16:51)
[2024-03-26] MEDS: XOPENEX 1.25 MG INHALANT SOLUTION INH (19:16)
[2024-03-26] MEDS: ATROVENT NEBULES 0.5 MG INH (19:16)
[2024-03-26 21:35] LABS: Glucose - Point of Care 143 mg/dl (70-99)
[2024-03-26] MEDS: ULTRAM 50 MG PO (23:22)
--- NOTE | 2024-03-27 04:59 | PTCARENOTE ---
Pt received at change of shift. NSR with PACs on tele with HR 70s. Pt with complaints of 9/10 right shoulder pain unrelieved by the tramadol she received at 1651. Nisreen Stuart NP notified, one time dose of Tramadol ordered and administered
per orders. Pt offers no further complaints at this time. Can make needs known. Call chi within reach.
[2024-03-27 05:58] VITALS: BP 159/83
[2024-03-27 06:00] VITALS: BMI 20.8
[2024-03-27 06:34] LABS: Blood Urea Nitrogen 20 mg/dl (7-17); Calcium 8.8 mg/dl (8.4-10.2); Carbon Dioxide 26 mmol/L (22-30); Chloride 103 mmol/L (98-107); Estimated Creatinine Clearance 46 ml/min; Glucose 115 mg/dl (70-99); Sodium 137 mmol/L (135-145); eGFR > 60.00
[2024-03-27 06:39] LABS: Potassium 4.6 mmol/L (3.5-5.1)
[2024-03-27 06:47] VITALS: BP 166/67
[2024-03-27 06:50] LABS: Glucose - Point of Care 109 mg/dl (70-99)
[2024-03-27] MEDS: ATROVENT NEBULES 0.5 MG INH (07:16)
[2024-03-27] MEDS: XOPENEX 1.25 MG INHALANT SOLUTION INH ×2 (07:16→14:22)
--- NOTE | 2024-03-27 07:39 | W.PN.HOSP.TC ---
Addendum entered and electronically signed by Bassam Steven MD 03/28/24 10:36:
Patient is in need of oxygen at 3 liters/minute via nasal cannula continuously due to pulse oximetry of 87% on room air at rest. Oxygen will help to improve hypoxemia. Patient is mobile within the home. DuoNeb therapy has been tried and is
ineffective in treating hypoxemia related symptoms. Oxygen is needed to improve symptoms.
Original Note:
Today's Communication/Plan
-
Discharge tomorrow
Assessment / Plan
Assessment / Plan
HPI: 78y F with PMH significant for A-Fib, hypothyroidism and Chua Syndrome who presents to ED complaining of palpitations and abdominal pain. Patient states that she noted racing heartbeat / palpitations yesterday and they have persisted
since that time. Today she noted pain in the LUQ area as well as the RUQ, R shoulder and R scapula areas. She felt nauseated - but had no emesis or diarrhea. With worsening symptoms patient presented to the ED for further evaluation and treatment.
#Acute hypoxic respiratory insufficiency
- Currently requiring 1 L of oxygen, down from 3 L of oxygen, she does not wear oxygen at home
- Chest x-ray shows partial right lung resection, subtle increased interstitial markings within the left lower lobe which could represent interstitial fibrosis
- Chest CT shows neg for interstitial fibrosis, shows mod loculated right pleural effusion, progressed, mod emphysematous disease
- Appreciate pulmonology input, suspect hypoxia secondary to her COPD
- Pulmonology states chronic lower effusion likely worse due to recent atrial fibrillation and perhaps some degree of volume overload
- Pulmonology started bronchodilators, recommends checking oxygen prescription eval tomorrow, and discharge home with bronchodilators
- Follow-up with pulmonology in the office
Paroxysmal Atrial Fibrillation with Rapid Ventricular Response
- Appreciate cardiology input
- Status post cardioversion 03/26, currently in normal sinus rhythm
- Continue Eliquis for stroke risk reduction
- Cardiology recommends stopping digoxin, follow-up with cardiology in the office
Anion Gap Metabolic Acidosis
DIANA on CKD III
Hyperkalemia
- Hyperkalemia resolved, creatinine improving
- DIANA resolved status post IV fluid
DM-II, Uncontrolled
- Continue home insulin pump, carb controlled diet
- A1C7.0
Hypothyroidism
- Current TFTs suggest over-replacement of T4.
- Hold T4 supplementation acutely and then resumed at decreased dose of 100 mcg daily, down from 125
- Repeat TFTs in 4-6 weeks after dose change.
Abdominal Pain
Abnormal LFTs
- Symptoms seem c/w GB pathology given location (upper abdomen with R shoulder pain), associated nausea, etc.
- US and CT scan both proved unremarkable.
- HIDA neg, abdominal pain resolved
- LFTs improving, trend LFTs
Right shoulder pain
-Suspect secondary to arthritis versus rotator cuff pathology
� Check right shoulder x-ray
� Continue home tramadol as needed
Chua Syndrome
- History of multiple prior malignancies - none active at present.
- Chronic R lung changes on CXR and post-surgical changes noted on CT following previous cancer resections.
DVT Prophylaxis: Eliquis
Code Status: DNR
Updated daughter Olivia on phone 03/27, all questions answered
Total time spent to see the patient on the floor, examine the patient, review data and lab results, discuss treatment plan with patient, nursing staff around 51 minutes.
Physical Exam
General: No acute distress
HEENT: Normocephalic, Atraumatic, EOMI, MMM
Respiratory: Clear to Auscultation bilaterally
Cardiac: Normal S1/S2, Regular Rate and Rhythm
GI: Soft, Nontender, Nondistended, Normal Bowel Sounds
Extremities: No Clubbing, Cyanosis, or Edema
Neuro: Nonfocal/Grossly Intact
Psych: Calm, Cooperative
Derm: No Visible lesions
Anticipated Discharge: Within 24 hours
Subjective/Interval History
-
Date of Service: March 27, 2024
C/o right shoulder pain. Denies SOB, CP, palp. No fever, no vomiting.
Objective Data
-
Labs:
Laboratory Results
03/27/24
06:05
Sodium 137
Potassium 4.6
Chloride 103
Carbon Dioxide 26
BUN 20 H
Creatinine 0.9
Glucose 115 H
Calcium 8.8
Vital Signs:
Vital Signs
Temp Pulse Resp BP Pulse Ox
98.1 F 78 18 159/83 95
03/27/24 06:50 03/27/24 07:19 03/27/24 07:19 03/27/24 05:58 03/27/24 07:19
I&O
03/26/24 03/27/24 03/28/24
06:59 06:59 06:59
Intake Total 1340 / 1340 180 / 180
Output Total 1325 / 1325 600 / 600
Balance 15 -420 / -420
--- NOTE | 2024-03-27 08:02 | PTCARENOTE ---
Patient resting in bed this morning, receiving a neb treatment, remains in SR.
[2024-03-27] MEDS: PT'S OWN INSULIN PUMP - NovoLOG 3.67 UNIT SC (08:47)
[2024-03-27] MEDS: ELIQUIS 2.5 MG PO ×2 (08:48→20:18)
[2024-03-27] MEDS: PROTONIX IV 40 MG IV (08:48)
[2024-03-27] MEDS: NSS (PRESERVATIVE FREE) 10 ML IV (08:49)
[2024-03-27] MEDS: FLUSH (NSS) 1 FLUSH IV (08:50)
[2024-03-27] MEDS: ULTRAM 25 MG PO ×2 (11:04→13:13)
[2024-03-27 11:27] VITALS: BP 157/72
[2024-03-27] MEDS: PT'S OWN INSULIN PUMP - NovoLOG 3.65 UNIT SC ×2 (12:30→18:00)
[2024-03-27 13:01] LABS: Glucose - Point of Care 156 mg/dl (70-99)
[2024-03-27] MEDS: ATROVENT NEBULES INH (14:22)
--- NOTE | 2024-03-27 15:22 | W.PN.PUL3 ---
Today's Communication / Plan
-
Continue with current plan
No indication for steroids
No evidence for interstitial lung disease on CAT scan
Chronic pleural effusion suspect worse due to recent A-fib and perhaps some degree of volume overload proBNP was moderately increased.
Oxygenation improved down to 1 L. Home oxygen assessment tomorrow
Recommend outpatient bronchodilator therapy with dual bronchodilators if patient agreeable.
Hopefully discharge in 24 hours
Assessment
-
Assessment: 78-year-old female former tobacco smoker with a past medical history of severe COPD, A-fib on Eliquis, chronic HFpEF, history of lung SCC, DM type II, history of colon cancer, and CKD who presented with right shoulder pain, a racing
heart and nausea. 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 EKG showed rapid A-fib. Cardiology consulted and cardioversion was arranged. She underwent cardioversion on 03/26/2024. She has continued to
require supplemental oxygen; CXR on 03/26/2024 showed subtle increased interstitial markings within the left lower lobe suggesting interstitial fibrosis. Pulmonary service consulted for additional management/recommendations.
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
Impression:
#Centrilobular emphysema with severe COPD (via spirometry from 04/17/2022) - not on maintenance inhalers as patient had declined previously due to fear of worsening heart rate
#Mild�moderate restrictive lung defect (post-BD FVC: 1.74 L/59% predicted via spirometry from 04/17/2022)
#History of lung squamous of carcinoma s/p right upper lobe lobectomy
#Rapid A-fib with history of ablation s/p cardioversion done today (03/26/2024)
#Acute anemia
#Primary hyperthyroidism likely due to exogenous use (TSH: <0.02, free T4: 2.58)
#History of colon cancer
#DM type II
#Former tobacco use (74-[id number] history, quit about 32 years ago)
Plan:
- She does not have any significant interstitial lung disease as recent PET/CT from 10/09/2023 did not show any evidence of interstitial lung disease
- The interstitial prominence seen in the left lower lobe currently is likely due to interstitial edema
- She does, however, have a history of severe COPD and this is likely why she is hypoxic currently, in addition to this right lower lobe pleural effusion, however this is small and unlikely to be significantly contributing to her hypoxia/SOB
-CT chest with moderate to severe centrilobular emphysema. Loculated right pleural effusion is slightly worse compared to prior, small tiny left pleural effusion. Not amenable for thoracentesis. Suspect secondary to recent A-fib and perhaps some
degree of volume overload, she is status post IV fluids as well. There is no evidence for interstitial lung disease.
- She does have chronic SOB with wheezing and dyspnea on exertion but the patient is not bothered by this as it is chronic and has been present for many years
- She does not take any maintenance inhalers as she does not wanted to affect her heart rate, however in the setting of her current hypoxia I think it is reasonable to start her on nebulized bronchodilators at this time
- I will start her on Xopenex/Atrovent and upon discharge we should send her home on a LABA/LAMA with Stiolto versus Anoro with prn Airsupra vs Albuterol
- prn nebulized bronchodilators while she remains hospitalized � not currently bronchospastic.
Home oxygen assessment: Wean off oxygen if able. Currently on [address] order for tomorrow morning. 03/28/2024.
- She should continue following up with us in the pulmonary office as last visit was in September [address] Stevens.
- She needs updated PFTs and 6 MWT
- Maintain SpO2 88-95% with supplemental O2 and wean as tolerated
- She will need a walking pulse oximetry prior to discharge
A-fib status post cardioversion this admission. Cardiology has signed off heart rate
- Incentive spirometer q1hr while awake
- DVT ppx: Eliquis
Home oxygen assessment tomorrow.
No evidence for acute exacerbation COPD
Recommend dual bronchodilator therapy.
Discharge planning 24-hour if improved.
Attempted to call Daughter Tessie and went to [facility].
Pt was updated in detail.
Pulmonary service will continue to follow along. Outpatient follow-up will be arranged as last visit was on 10/15/[address] Stevens.

Data:
Echo 08/20/22: [facility] study, EF 55-60%, mild conc LVH, no significant valve disease
CXR 03/26/2024:
Status post partial right lung resection with stable appearance from recent radiograph of March 24, 2024.
There is a small left pleural effusion, new since recent radiograph.
Subtle increased interstitial markings within the left lower lung. This may represent interstitial fibrosis. Interstitial edema seems less likely with fairly distinct appearance of the central pulmonary vasculature.
Subjective Data
-
Date of Service:
Date of Service: March 27, 2024
Chief Complaint: Pulmonary Follow Up
Subjective:
No new complaints
No overnight events
Remains on low rate supplemental ox 1 L
Review of Systems
Cardiopulmonary: Dyspnea (None at rest), Cough (n), Sputum Production (n) and Wheezing (n)
Objective Data
Data Reviewed
Vital Signs / I&O / Oxygen:
Vital Signs
Temp Pulse Resp BP Pulse Ox
98.1 F 77 16 157/72 92
03/27/24 11:29 03/27/24 11:27 03/27/24 11:29 03/27/24 11:27 03/27/24 14:36
Intake and Output
03/26/24 03/27/24 03/28/24
06:59 06:59 06:59
Intake Total 1340 / 1340 180 / 180 240 / 240
Output Total 1325 / 1325 600 / 600
Balance 15 / 15 -420 / -420 240 / 240
SaO2 92
Nasal Cannula flow liters per 2
minute
Physical Exam
General: Comfortable
HEENT: Normocephalic
Cardiovascular: S1-S2
Respiratory: Other (Not bronchospastic, decreased breath sounds in both bases)
GI: Soft and Non Distended
Neurology: Awake, AO x 3 and No Motor Deficits
Labs/Micro/Reports
Lab Data
03/25/24 03:14
03/27/24 06:05
[2024-03-27 16:07] VITALS: BP 133/75
--- NOTE | 2024-03-27 18:33 | PTCARENOTE ---
Patient is refusing right shoulder x-ray, asking why it was ordered, explained that she is continuing to complain of right shoulder pain and that physician ordered x-ray. Patient states she'll think about it, but that she's not going tonight.
Notified radiology and order changed to tomorrow if she is agreeable.
--- NOTE | 2024-03-27 19:18 | W.PN.UPDATE ---
Update Note
Progress Note Update
Daughter updated regarding CAT scan
No evidence for interstitial lung disease
Right chronic right pleural effusion slightly more prominent. Likely due to fluid retention
Hopefully to wean off oxygen tomorrow. Patient may need oxygen supplementation temporarily to go home.
[2024-03-27 19:51] VITALS: BP 133/67
[2024-03-27 21:23] LABS: Glucose - Point of Care 126 mg/dl (70-99)
[2024-03-27] MEDS: PT'S OWN INSULIN PUMP - NovoLOG SC (22:50)
[2024-03-27 22:58] VITALS: BP 153/71
[2024-03-27] MEDS: ULTRAM 50 MG PO (23:00)
[2024-03-28 03:42] VITALS: BP 168/87
[2024-03-28 03:48] VITALS: BMI 21.1
[2024-03-28 06:47] VITALS: BP 151/84
[2024-03-28 08:17] LABS: Glucose - Point of Care 152 mg/dl (70-99)
--- NOTE | 2024-03-28 08:33 | W.PN.HOSP.TC ---
Today's Communication/Plan
-
Discharge home of oxygen today
Assessment / Plan
Assessment / Plan
HPI: 78y F with PMH significant for A-Fib, hypothyroidism and Chua Syndrome who presents to ED complaining of palpitations and abdominal pain. Patient states that she noted racing heartbeat / palpitations yesterday and they have persisted
since that time. Today she noted pain in the LUQ area as well as the RUQ, R shoulder and R scapula areas. She felt nauseated - but had no emesis or diarrhea. With worsening symptoms patient presented to the ED for further evaluation and treatment.
#Acute hypoxic respiratory insufficiency
- Currently requiring 1 L of oxygen, down from 3 L of oxygen, she does not wear oxygen at home
- Chest x-ray shows partial right lung resection, subtle increased interstitial markings within the left lower lobe which could represent interstitial fibrosis
- Chest CT shows neg for interstitial fibrosis, shows mod loculated right pleural effusion, progressed, mod emphysematous disease
- Appreciate pulmonology input, suspect hypoxia secondary to her COPD
- Pulmonology states chronic lower effusion likely worse due to recent atrial fibrillation and perhaps some degree of volume overload
- Pulmonology started bronchodilators
- Cleared by pulmonology for discharge home with inhalers and home oxygen -she needs 3 L at all times
- Follow-up with pulmonology in the office
Paroxysmal Atrial Fibrillation with Rapid Ventricular Response
- Appreciate cardiology input
- Status post cardioversion /, currently in normal sinus rhythm
- Continue Eliquis for stroke risk reduction
- Cardiology recommends stopping digoxin, follow-up with cardiology in the office
Anion Gap Metabolic Acidosis
DIANA on CKD III
Hyperkalemia
- Hyperkalemia resolved, creatinine improving
- DIANA resolved status post IV fluid
DM-II, Uncontrolled
- Continue home insulin pump, carb controlled diet
- A1C7.0
Hypothyroidism
- Current TFTs suggest over-replacement of T4.
- Hold T4 supplementation acutely and then resumed at decreased dose of 100 mcg daily, down from 125
- Repeat TFTs in 4-6 weeks after dose change.
Abdominal Pain
Abnormal LFTs
- Symptoms seem c/w GB pathology given location (upper abdomen with R shoulder pain), associated nausea, etc.
- US and CT scan both proved unremarkable.
- HIDA neg, abdominal pain resolved
- LFTs improving, trend LFTs
Right shoulder pain
-Suspect secondary to rotator cuff pathology
� Right shoulder x-ray neg
� Continue home tramadol as needed
Chua Syndrome
- History of multiple prior malignancies - none active at present.
- Chronic R lung changes on CXR and post-surgical changes noted on CT following previous cancer resections.
DVT Prophylaxis: Eliquis
Code Status: DNR
Updated daughter Olivia on phone 03/27, all questions answered
Physical Exam
General: No acute distress
HEENT: Normocephalic, Atraumatic, EOMI, MMM
Respiratory: Clear to Auscultation bilaterally
Cardiac: Normal S1/S2, Regular Rate and Rhythm
GI: Soft, Nontender, Nondistended, Normal Bowel Sounds
Extremities: No Clubbing, Cyanosis, or Edema
Neuro: Nonfocal/Grossly Intact
Psych: Calm, Cooperative
Derm: No Visible lesions
Anticipated Discharge: Today
Subjective/Interval History
-
Date of Service: March 28, 2024
Patient denies chest pain, shortness of breath, or palpitations. No fever, no vomiting.
Objective Data
-
Vital Signs:
Vital Signs
Temp Pulse Resp BP Pulse Ox
97.9 F 65 20 151/84 97
03/28/24 06:56 03/28/24 08:00 03/28/24 06:56 03/28/24 06:47 03/28/24 06:56
I&O
03/27/24 03/28/24 03/29/24
06:59 06:59 06:59
Intake Total 180 / 180 360 / 360
Output Total 600 / 600
Balance -420 / -420 360 / 360
[2024-03-28] MEDS: ELIQUIS 2.5 MG PO (09:51)
[2024-03-28] MEDS: FLUSH (NSS) 1 FLUSH IV (09:52)
[2024-03-28] MEDS: PROTONIX 40 MG PO (09:52)
[2024-03-28] MEDS: PT'S OWN INSULIN PUMP - NovoLOG 4.2 UNIT SC (10:00)
--- NOTE | 2024-03-28 10:52 | PTCARENOTE ---
The patient was seen by respiratory this morning for home O2 assessment. Pulse ox on room air prior to ambulating was 87%, patient appears dyspneic at rest on room air. Required 3L nasal canula to ambulate 50 feet. Notifying outsole caser that
patient will require home O2.
[2024-03-28 11:30] VITALS: BP 146/93
--- NOTE | 2024-03-28 13:02 | PTCARENOTE ---
Telephoned the patient's daughter Tessie re: pending discharge and need for home O2. She states she received a telephone call from the O2 company who will deliver the oxygen to her home where the patient lives as well as the portable tank for
transport. I informed the daughter that I am still waiting on a discharge order and we will be in touch.
--- NOTE | 2024-03-28 13:22 | W.PN.PUL3 ---
Today's Communication / Plan
-
Discharge on supplemental oxygen, hopefully temporary.
Outpatient pulmonary follow-up as mentioned
Discharged on ANORO and albuterol HFA, may call our office if there is any issues with inhalers.
Discharge planning
Assessment
-
Assessment: 78-year-old female former tobacco smoker with a past medical history of severe COPD, A-fib on Eliquis, chronic HFpEF, history of lung SCC, DM type II, history of colon cancer, and CKD who presented with right shoulder pain, a racing
heart and nausea. 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 EKG showed rapid A-fib. Cardiology consulted and cardioversion was arranged. She underwent cardioversion on 03/26/2024. She has continued to
require supplemental oxygen; CXR on 03/26/2024 showed subtle increased interstitial markings within the left lower lobe suggesting interstitial fibrosis. Pulmonary service consulted for additional management/recommendations.
Chronic conditions DIRECTOR RECORDS MANAGEMENT: Severe COPD not on inhalers, hypothyroidism, A-fib on Eliquis, CHF, history of lung squamous cell carcinoma intolerant to Keytruda, DM type II with insulin pump, history of colon cancer, history of Chua syndrome
Impression:
#Centrilobular emphysema with severe COPD (via spirometry from 04/17/2022) - not on maintenance inhalers as patient had declined previously due to fear of worsening heart rate
#Mild�moderate restrictive lung defect (post-BD FVC: 1.74 L/59% predicted via spirometry from 04/17/2022)
#History of lung squamous of carcinoma s/p right upper lobe lobectomy
#Rapid A-fib with history of ablation s/p cardioversion done today (03/26/2024)
#Acute anemia
#Primary hyperthyroidism likely due to exogenous use (TSH: <0.02, free T4: 2.58)
#History of colon cancer
#DM type II
#Former tobacco use (72-[id number] history, quit about 32 years ago)
Plan:
-Clinically improved since admission
-CT chest with moderate to severe centrilobular emphysema. Loculated right pleural effusion is slightly worse compared to prior, small tiny left pleural effusion. Not amenable for thoracentesis. Suspect secondary to recent A-fib and perhaps some
degree of volume overload, she is status post IV fluids as well. There is no evidence for interstitial lung disease.
- The interstitial prominence seen in the left lower lobe currently is likely due to interstitial edema
- She does, however, have a history of severe COPD and this is likely why she is hypoxic currently, in addition to this right lower lobe pleural effusion, however this is small and unlikely to be significantly contributing to her hypoxia/SOB
- She does have chronic SOB with wheezing and dyspnea on exertion but the patient is not bothered by this as it is chronic and has been present for many years
- She does not take any maintenance inhalers as she does not wanted to affect her heart rate, however in the setting of her current hypoxia I think it is reasonable to start her on nebulized bronchodilators at this time
-Will discharge home on ANORO and PRR albuterol HFA
- prn nebulized bronchodilators while she remains hospitalized � not currently bronchospastic.
Home oxygen assessment: Noted 87% at rest. Patient required up to 3 L with ambulation.
Will discharge on supplemental oxygen 2 L at rest and 3 L with ambulation.
- She should continue following up with us in the pulmonary office as last visit was in September [address] Stevens.
- She needs updated PFTs and 6 MWT
A-fib status post cardioversion this admission. Cardiology has signed off heart rate
- Incentive spirometer q1hr while awake
- DVT ppx: Eliquis
From my perspective okay to discharge. Will need supplemental oxygen
Dr. Rangel updated daughter Tessie over the phone on 03/27/2024.
No additional recommendations, signed off
Outpatient follow-up will be arranged as last visit was on 10/15/[address] Stevens.

Data:
Echo 08/20/22: [facility] study, EF 55-60%, mild conc LVH, no significant valve disease
CXR 03/26/2024:
Status post partial right lung resection with stable appearance from recent radiograph of March 24, 2024.
There is a small left pleural effusion, new since recent radiograph.
Subtle increased interstitial markings within the left lower lung. This may represent interstitial fibrosis. Interstitial edema seems less likely with fairly distinct appearance of the central pulmonary vasculature.
Subjective Data
-
Date of Service:
Date of Service: March 28, 2024
Chief Complaint: Pulmonary Follow Up
Subjective:
Patient feels better
Denies significant phlegm production
Denies hemoptysis
Denies any chest pain
Review of Systems
General: Fever (n)
Cardiopulmonary: Dyspnea (n)
GI: Abdominal Pain (n) and Nausea (n)
Objective Data
Data Reviewed
Vital Signs / I&O / Oxygen:
Vital Signs
Temp Pulse Resp BP Pulse Ox
98.5 F 69 20 146/93 98
03/28/24 11:23 03/28/24 11:30 03/28/24 11:23 03/28/24 11:30 03/28/24 11:23
Intake and Output
03/27/24 03/28/24 03/29/24
06:59 06:59 06:59
Intake Total 180 / 180 360 / 360 240 / 240
Output Total 600 / 600
Balance -420 / -420 360 / 360 240 / 240
SaO2 98
Nasal Cannula flow liters per 2
minute
Physical Exam
General: Comfortable
HEENT: Normocephalic
Cardiovascular: S1-S2
Respiratory: Other (Not bronchospastic, decreased breath sounds in both bases)
GI: Soft and Non Distended
Neurology: Awake, AO x 3 and No Motor Deficits
Labs/Micro/Reports
Lab Data
03/25/24 03:14
03/27/24 06:05
[2024-03-28 14:11] LABS: Glucose - Point of Care 110 mg/dl (70-99)
[2024-03-28] MEDS: PT'S OWN INSULIN PUMP - NovoLOG 3.3 UNIT SC (14:11)
--- NOTE | 2024-03-28 14:25 | W.DCSUMMARY ---
Discharge Summary
Discharge Data
Date of Admission: 03/24/24
Date of Discharge: 03/28/24
-
Pending Results: No
Hospital Course
Discharge diagnosis:
Rapid atrial fibrillation status post cardioversion
Acute hypoxic respiratory insufficiency
Chronic obstructive pulmonary disease
Acute kidney injury superimposed on stage III chronic kidney disease
Hyperkalemia
Diabetes
Elevated liver function test
Abdominal pain
Right shoulder pain
Hypothyroidism
Chua syndrome
Consults: Cardiology, pulmonology
Procedures:
Successful cardioversion
Hospital course:
78-year-old female with a past medical history of atrial fibrillation on Eliquis, COPD, diabetes, and Chua syndrome was admitted for rapid atrial fibrillation. She was seen in conjunction with cardiology, and had successful cardioversion. She
remained in normal sinus rhythm.
Patient also had acute kidney injury and hyperkalemia, this resolved with IV fluids.
Patient had abdominal pain with mildly elevated liver function test. Her CT of the abdomen and pelvis and HIDA scan were negative for cholecystitis. Her abdominal pain resolved.
She had right shoulder pain, suspect secondary to rotator cuff arthropathy. Her pain was controlled with her home tramadol.
She has hypothyroidism, her thyroid hormone levels were elevated. Her levothyroxine was decreased from 125 mg daily to 100 micrograms daily. She needs to follow-up with her usual business systems administrator for repeat thyroid function test in 4-6 weeks.
Patient's hospital course was complicated by acute hypoxic respiratory insufficiency. Patient was seen in conjunction with pulmonology. Her hypoxia is secondary to her COPD. Pulmonology recommends bronchodilators, and discharge home on oxygen.
She is set up with home oxygen at 3 L/min.
Patient's multiple medical conditions have been optimized. She needs to follow-up with her primary care doctor in 1 week, and cardiology/pulmonology/endocrinology in 2-3 weeks.
Disposition: Home self-care
Discharge planning: Required 50-minute
Discharge Plan
-
Patient Disposition: Home (Routine Discharge)
Discharge Diagnosis/Procedures: Rapid atrial fibrillation status post cardioversion, chronic obstructive pulmonary disease, acute hypoxic respiratory insufficiency, right shoulder pain, likely from rotator cuff arthropathy
Condition: Good
Diet: Regular
Activity: As tolerated
Driving Restrictions: As prior to admission
Activity Restrictions/Additional Instructions:
Your thyroid hormone levels were high.
Your levothyroxine has been decreased to 100 mcg daily, down from 125 mcg daily
You need repeat thyroid function test in 4-6 weeks.
Follow-up with your usual business systems administrator in the office in 2-3 weeks.
Pulmonology recommends you use the inhaler as prescribed.
Follow-up with pulmonology in the office in 2-3 weeks.
Follow-up with cardiology in the office in 2-3 weeks, and your primary care doctor in 1 week.
Referrals:
Rajesh Stevens MD [Active] - in two to four weeks (full PFTs on day of office visit)
Jody Guzman CRNP [Family Provider] - in one week
Keven Chatman DO [Active] - in two to three weeks
Urszula Dow MD [Consulting Staff] - in two to three weeks
Prescriptions:
New
levothyroxine 100 mcg Tablet
100 mcg PO DAILY@0600 Qty: 30 0RF
Anoro Ellipta 62.5-25 mcg/actuation blister with device
1 inh inhalation DAILY Qty: 60 0RF
levalbuterol tartrate [Xopenex HFA] 45 mcg/actuation HFA aerosol inhaler
2 inh inhalation Q6H PRN (Reason: shortness of breath or wheezing) Qty: 15 0RF
Rx Instructions:
Give with spacer
Continued
Eliquis 5 mg Tablet
2.5 mg PO BID
insulin aspart U-100 [Novolog U-100 Insulin aspart] 100 unit/mL Solution
1 sliding scale dose continuous subcutaneous infusion DIRECTED
Rx Instructions:
18-25 units per day. Pt own insulin pump.
tramadol 50 mg Tablet
50 mg PO 4XD PRN (Reason: pain)
Discontinued
levothyroxine 125 mcg Tablet
125 mcg PO DAILY
Discharge Orders:
Discharge Patient (As Directed); Ordered 03/28/24
Ordered By: Bassam Steven
Care Plan Goals
Care Plan Goals:
Problem: Readiness for enhanced knowledge related to diagnosis and treatment plan
Goal: Understand your diagnosis and treatment plan needs, including medications if applicable.
Instructions: Know your diagnosis, underlying causes and treatment plan options, including medications if applicable. Consult with your health care team to learn about your diagnosis and treatment plan, including medications if applicable.
Discharge Date and Time
Print Language: IRISH
--- NOTE | 2024-03-28 14:36 | PTCARENOTE ---
Telephoned the patient's daughter Tessie that her mother's discharge order is in. She will bring the patient's portable O2 and bring her home in 1-2 hours.
[2024-03-28 15:41] VITALS: BP 140/70
--- NOTE | 2024-03-28 17:13 | PTCARENOTE ---
Daughter here to transport her mother home with portable O2 tank, oxygen was delivered to their home. Reviewed discharge instructions and follow up appointments with the patient and her daughter and they state their understanding. Patient discharged
home with her family on 3L NC.
--- NOTE | 2024-03-29 08:04 | CM ---
spoke to RN, pt qualifies for home o2, hospitalist requesting, pt agrees. called health care [facility] with referral, paperwork faxed. pt/nurse notified with time of delivery for portible tank.
== END 2024-03-28 17:00 | disposition home or self-care (01) | DRG 309 ==
LOC: IVU 20:39
PROVIDERS: Emergency Medicine; Internal Medicine Cardiovascular Disease; Nurse Practitioner Family; ADMITTING PHYSICIAN Hospitalist; ATTENDING PHYSICIAN Family Medicine; CONSULT PHYSICIAN Internal Medicine Critical Care Medicine; EMERGENCY PHYSICIAN Student in an Organized Health Care Education/Training Program; FAMILY PHYSICIAN Nurse Practitioner Family; OTHER PHYSICIAN Internal Medicine Cardiovascular Disease
PROC: 5A2204Z Restoration of Cardiac Rhythm, Single (ICD-10-PCS; 2024-03-26)
DX: I48.0 Paroxysmal atrial fibrillation (principal); E87.20 Acidosis, unspecified; N17.9 Acute kidney failure, unspecified; I50.32 Chronic diastolic (congestive) heart failure; R06.89 Other abnormalities of breathing; R09.02 Hypoxemia; J43.2 Centrilobular emphysema; N18.31 Chronic kidney disease, stage 3a; E87.5 Hyperkalemia; E11.22 Type 2 diabetes mellitus with diabetic chronic kidney disease; E11.65 Type 2 diabetes mellitus with hyperglycemia; E03.9 Hypothyroidism, unspecified; Z15.09 Genetic susceptibility to other malignant neoplasm; Z79.01 Long term (current) use of anticoagulants; Z79.4 Long term (current) use of insulin; Z79.890 Hormone replacement therapy; M72.9 Fibroblastic disorder, unspecified; Z85.118 Personal history of other malignant neoplasm of bronchus and lung; Z85.038 Personal history of other malignant neoplasm of large intestine; Z85.42 Personal history of malignant neoplasm of other parts of uterus; Z87.891 Personal history of nicotine dependence; Z88.6 Allergy status to analgesic agent; Z88.7 Allergy status to serum and vaccine; Z91.041 Radiographic dye allergy status; Z96.41 Presence of insulin pump (external) (internal); Z66 Do not resuscitate; Z80.0 Family history of malignant neoplasm of digestive organs; Z82.49 Family history of ischemic heart disease and other diseases of the circulatory system; Z90.49 Acquired absence of other specified parts of digestive tract; Z83.79 Family history of other diseases of the digestive system; Z90.710 Acquired absence of both cervix and uterus; Z90.722 Acquired absence of ovaries, bilateral; D64.9 Anemia, unspecified; E05.90 Thyrotoxicosis, unspecified without thyrotoxic crisis or storm; E86.1 Hypovolemia
CPT/HCPCS: 71046; 71250; 73030; 74176; 76700; 78226; 80048; 80053; 82010; 82248; 82962; 83036; 83605; 83690; 83735; 83880; 84100; 84439; 84443; 84484; 85025; 85027; 92960; 93005; 94640; 96361; 96374; 96375; 99285; A9537; J1160

== ENCOUNTER → 2024-04-20 15:45 | Outpatient (REF) | payer MEDICARE, OTHER, SELFPAY ==
[2024-04-20 17:02] LABS: Digoxin < 0.4 ng/ml (0.8-2.0)
[2024-04-20 17:15] LABS: Free T3 2.17 pg/ml (2.77-5.27); Free T4 1.13 ng/dl (0.78-2.19)
== END ==
LOC: REG 15:45
PROVIDERS: ATTENDING PHYSICIAN Internal Medicine Endocrinology, Diabetes & Metabolism; FAMILY PHYSICIAN Nurse Practitioner Family; REFERRING PHYSICIAN Physician Assistant
DX: E06.3 Autoimmune thyroiditis (principal); I48.19 Other persistent atrial fibrillation
CPT/HCPCS: 36415; 80162; 84439; 84443; 84481

== ENCOUNTER → 2024-05-19 14:42 | Outpatient (REF) | payer MEDICARE, OTHER, SELFPAY ==
[2024-05-19 15:34] LABS: % Basophils 1.2 % (0-2); % Eosinophils 2.1 % (0-6); % Immature Granulocytes 0.2 % (0-0.5); % Lymphocytes 19.7 % (20.5-51.1); % Monocytes 9.5 % (1.7-9.3); % Neutrophils 67.3 % (42.2-75.2); Absolute Basophils 0.1 10^3/uL (0-0.2); Absolute Eosinophils 0.1 10^3/uL (0-0.7); Absolute Lymphocytes 0.9 10^3/uL (1.2-3.4); Absolute Monocytes 0.4 10^3/uL (0.1-0.6); Absolute Neutrophils 2.9 10^3/uL (1.4-6.5); Hematocrit 43.2 % (37.0-47.0); Hemoglobin 13.5 g/dL (12.0-16.0); Mean Corp Hgb Conc. 31.3 g/dL (33.0-37.0); Mean Corpuscular Hgb 30.1 pg (27.0-31.0); Mean Corpuscular Volume 96.2 fL (81.0-99.0); Mean Platelet Volume 10.1 fL (7.4-10.4); Nucleated Red Blood Cells % 0 %; Platelet Count 209 10^3/uL (130-400); Red Blood Cell Count 4.49 10^6/uL (4.20-5.40); Red Cell Dist. Width 16.8 % (11.5-14.5); White Blood Cell Count 4.3 10^3/uL (4.8-10.8)
[2024-05-19 16:13] LABS: ALT (SGPT) 21 U/L (0-35); AST (SGOT) 31 U/L (14-36); Albumin 4.8 g/dl (3.5-5.0); Alkaline Phosphatase 80 U/L (38-126); Blood Urea Nitrogen 23 mg/dl (7-17); Calcium 9.8 mg/dl (8.4-10.2); Carbon Dioxide 29 mmol/L (22-30); Chloride 99 mmol/L (98-107); Glucose 48 mg/dl (70-99); HDL Cholesterol 99 mg/dl; LDL Cholesterol, Calculated 100 mg/dl; Sodium 137 mmol/L (135-145); Total Bilirubin 0.9 mg/dl (0.2-1.3); Total Cholesterol 216 mg/dl (50-199); Total Protein 8.1 g/dl (6.3-8.2); Triglyceride 86 mg/dl (10-149); Very Low Density Lipoprotein 17 mg/dl (0-30); eGFR > 60.00
[2024-05-20 10:03] LABS: Glycohemoglobin (HgbA1c) 7.2 % (4.0-5.6)
== END ==
LOC: RAD 14:42
PROVIDERS: ATTENDING PHYSICIAN Nurse Practitioner Family
DX: R10.9 Unspecified abdominal pain (principal); E11.65 Type 2 diabetes mellitus with hyperglycemia; R73.9 Hyperglycemia, unspecified
CPT/HCPCS: 36415; 74176; 80053; 80061; 83036; 85025

== ENCOUNTER → 2024-06-24 12:00 | Outpatient (REF) | payer MEDICARE, OTHER, SELFPAY ==
[2024-06-24 13:00] LABS: % Basophils 1.1 % (0-2); % Immature Granulocytes 0.2 % (0-0.5); % Lymphocytes 20.8 % (20.5-51.1); % Monocytes 10.1 % (1.7-9.3); % Neutrophils 63.8 % (42.2-75.2); Absolute Basophils 0.1 10^3/uL (0-0.2); Absolute Eosinophils 0.2 10^3/uL (0-0.7); Absolute Lymphocytes 0.9 10^3/uL (1.2-3.4); Absolute Monocytes 0.5 10^3/uL (0.1-0.6); Absolute Neutrophils 2.9 10^3/uL (1.4-6.5); Hematocrit 39.7 % (37.0-47.0); Hemoglobin 12.7 g/dL (12.0-16.0); Mean Corpuscular Volume 96.8 fL (81.0-99.0); Nucleated Red Blood Cells % 0 %; Platelet Count 169 10^3/uL (130-400); Red Cell Dist. Width 16.5 % (11.5-14.5); White Blood Cell Count 4.5 10^3/uL (4.8-10.8)
[2024-06-24 13:28] LABS: Erythrocyte Sed Rate 10 mm/hour (0-20)
[2024-06-24 13:47] LABS: ALT (SGPT) 19 U/L (0-35); AST (SGOT) 25 U/L (14-36); Albumin 4.4 g/dl (3.5-5.0); Alkaline Phosphatase 61 U/L (38-126); Blood Urea Nitrogen 38 mg/dl (7-17); Calcium 9.9 mg/dl (8.4-10.2); Carbon Dioxide 26 mmol/L (22-30); Chloride 104 mmol/L (98-107); Glucose 132 mg/dl (70-99); Sodium 141 mmol/L (135-145); Total Bilirubin 0.7 mg/dl (0.2-1.3); Total Protein 7.5 g/dl (6.3-8.2); eGFR 45.48
[2024-06-24 13:52] LABS: Free T3 2.64 pg/ml (2.77-5.27); Free T4 1.56 ng/dl (0.78-2.19)
[2024-06-24 14:05] LABS: TSH 0.56 uIU/ml (0.47-4.68)
[2024-06-24 14:48] LABS: Glycohemoglobin (HgbA1c) 7.1 % (4.0-5.6)
== END ==
LOC: REG 12:00
PROVIDERS: ATTENDING PHYSICIAN Internal Medicine Endocrinology, Diabetes & Metabolism; FAMILY PHYSICIAN Nurse Practitioner Family; REFERRING PHYSICIAN Dermatology
DX: R21 Rash and other nonspecific skin eruption (principal); E06.3 Autoimmune thyroiditis; E10.9 Type 1 diabetes mellitus without complications
CPT/HCPCS: 36415; 80053; 83036; 84439; 84443; 84481; 85025; 85652; 86140

== ENCOUNTER → 2024-09-27 10:53 | Outpatient (REF) | payer MEDICARE, OTHER, SELFPAY ==
[2024-09-27 13:33] LABS: Glycohemoglobin (HgbA1c) 7.2 % (4.0-5.6)
[2024-09-27 13:55] LABS: ALT (SGPT) 21 U/L (0-35); AST (SGOT) 27 U/L (14-36); Albumin 4.3 g/dl (3.5-5.0); Alkaline Phosphatase 53 U/L (38-126); Blood Urea Nitrogen 33 mg/dl (7-17); Calcium 9.8 mg/dl (8.4-10.2); Carbon Dioxide 28 mmol/L (22-30); Chloride 103 mmol/L (98-107); Glucose 188 mg/dl (70-99); Potassium 5.3 mmol/L (3.5-5.1); Sodium 138 mmol/L (135-145); Total Protein 7.6 g/dl (6.3-8.2); eGFR 45.48
[2024-09-27 14:13] LABS: Free T3 2.19 pg/ml (2.77-5.27)
[2024-09-27 14:27] LABS: TSH 8.36 uIU/ml (0.47-4.68)
== END ==
LOC: REG 10:53
PROVIDERS: ATTENDING PHYSICIAN Internal Medicine Endocrinology, Diabetes & Metabolism; FAMILY PHYSICIAN Nurse Practitioner Family
DX: E10.9 Type 1 diabetes mellitus without complications (principal); E06.3 Autoimmune thyroiditis
CPT/HCPCS: 36415; 80053; 83036; 84439; 84443; 84481

== ENCOUNTER → 2025-01-04 16:32 | Outpatient (REF) | payer MEDICARE, OTHER, SELFPAY ==
[2025-01-04 17:22] LABS: ALT (SGPT) 17 U/L (0-35); AST (SGOT) 25 U/L (14-36); Albumin 4.2 g/dl (3.5-5.0); Alkaline Phosphatase 70 U/L (38-126); Blood Urea Nitrogen 26 mg/dl (7-17); Calcium 10.2 mg/dl (8.4-10.2); Carbon Dioxide 30 mmol/L (22-30); Chloride 106 mmol/L (98-107); Glucose 149 mg/dl (70-99); Potassium 4.8 mmol/L (3.5-5.1); Sodium 141 mmol/L (135-145); Total Protein 8.0 g/dl (6.3-8.2); eGFR 45.48
[2025-01-04 17:38] LABS: Free T3 3.03 pg/ml (2.77-5.27)
[2025-01-04 17:52] LABS: TSH 2.77 uIU/ml (0.47-4.68)
[2025-01-05 08:32] LABS: Glycohemoglobin (HgbA1c) 7.4 % (4.0-5.6)
== END ==
LOC: REG 16:32
PROVIDERS: ATTENDING PHYSICIAN Internal Medicine Endocrinology, Diabetes & Metabolism; FAMILY PHYSICIAN Nurse Practitioner Family
DX: E10.9 Type 1 diabetes mellitus without complications (principal); E06.3 Autoimmune thyroiditis
CPT/HCPCS: 36415; 80053; 83036; 84439; 84443; 84481

== ENCOUNTER → 2025-01-07 12:44 | Outpatient (REF) | payer MEDICARE, OTHER, SELFPAY | LOC: WOUND 12:44 | PROVIDERS: ATTENDING PHYSICIAN Surgery; FAMILY PHYSICIAN Nurse Practitioner Family | DX: I73.9 Peripheral vascular disease, unspecified (principal); L97.312 Non-pressure chronic ulcer of right ankle with fat layer exposed; I87.2 Venous insufficiency (chronic) (peripheral); E11.9 Type 2 diabetes mellitus without complications; I48.0 Paroxysmal atrial fibrillation; Z79.4 Long term (current) use of insulin; Z15.09 Genetic susceptibility to other malignant neoplasm; Z15.07 Genetic susceptibility to malignant neoplasm of urinary tract; Z15.068 Genetic susceptibility to other malignant neoplasm of digestive system; Z15.060 Genetic susceptibility to colorectal cancer | CPT/HCPCS: 11042; 99204 ==

== ENCOUNTER → 2025-01-18 14:29 | Outpatient (REF) | payer MEDICARE, OTHER, SELFPAY | LOC: WOUND 14:29 | PROVIDERS: ATTENDING PHYSICIAN Surgery; FAMILY PHYSICIAN Nurse Practitioner Family | DX: L97.312 Non-pressure chronic ulcer of right ankle with fat layer exposed (principal); I73.9 Peripheral vascular disease, unspecified; I87.2 Venous insufficiency (chronic) (peripheral); E11.9 Type 2 diabetes mellitus without complications; I48.0 Paroxysmal atrial fibrillation; Z79.4 Long term (current) use of insulin; Z15.09 Genetic susceptibility to other malignant neoplasm; Z15.07 Genetic susceptibility to malignant neoplasm of urinary tract; Z15.068 Genetic susceptibility to other malignant neoplasm of digestive system; Z15.060 Genetic susceptibility to colorectal cancer | CPT/HCPCS: 11042 ==

== ENCOUNTER → 2025-01-28 14:05 | Outpatient (REF) | payer MEDICARE, OTHER, SELFPAY | LOC: RAD 14:05 | PROVIDERS: ATTENDING PHYSICIAN Surgery; FAMILY PHYSICIAN Nurse Practitioner Family | DX: L97.312 Non-pressure chronic ulcer of right ankle with fat layer exposed (principal); I87.2 Venous insufficiency (chronic) (peripheral) | CPT/HCPCS: 93922; 93970 ==

== ENCOUNTER 2025-02-03 14:52 | Outpatient (REF) | payer MEDICARE, OTHER, SELFPAY | END 2025-02-03 23:59 | disposition home or self-care (01) | LOC: WOUND 14:52 | PROVIDERS: ATTENDING PHYSICIAN Surgery; FAMILY PHYSICIAN Nurse Practitioner Family | DX: L97.312 Non-pressure chronic ulcer of right ankle with fat layer exposed (principal); L97.321 Non-pressure chronic ulcer of left ankle limited to breakdown of skin; L03.116 Cellulitis of left lower limb; I73.9 Peripheral vascular disease, unspecified; I87.2 Venous insufficiency (chronic) (peripheral); Z15.060 Genetic susceptibility to colorectal cancer; Z15.068 Genetic susceptibility to other malignant neoplasm of digestive system; Z15.07 Genetic susceptibility to malignant neoplasm of urinary tract; Z15.09 Genetic susceptibility to other malignant neoplasm; E11.9 Type 2 diabetes mellitus without complications; Z79.4 Long term (current) use of insulin; I48.0 Paroxysmal atrial fibrillation | CPT/HCPCS: 11042; 99213 ==

== ENCOUNTER 2025-02-03 18:34 | Inpatient (IN) | payer MEDICARE, OTHER, SELFPAY ==
[2025-02-03] VITALS (7 sets, daily range): BP systolic 96–174; BP diastolic 56–88; BMI 19.9; BMI 18.9
--- NOTE | 2025-02-03 16:37 | ED.GENMED ---
History of Present Illness
<Cole Villatoro PA-C - Last Filed: 02/03/25 17:47>
General
Chief Complaint: DVT/Possible Blood Clot
Source: patient
Exam Limitations: none
Time Seen by Provider: 02/03/25 15:44
History of Present Illness
History of Present Illness:
79-year-old female on Eliquis for history of A-fib presents complaining of pain to the left calf and worsening redness around wounds to the left calf that started 4 to 5 days ago. She is under the care of the wound care center, Dr. Gilbert who
sent her in today for evaluation. She is an insulin-dependent diabetic. She denies fevers or chills. No known injury to the leg. Of note, she had an arterial and venous ultrasound to the left and right legs 6 days ago.
Past History
<Cole Villatoro PA-C - Last Filed: 02/03/25 17:47>
Past History
ED Past Medical History: Arrthythmia, Cancer and IDDM
ED Past Surgical History: Orthopedic
Social History
Tobacco: Non-smoker
Alcohol: None
Phy Exam
<Cole Villatoro PA-C - Last Filed: 02/03/25 17:47>
Physical Exam
Physical Exam:
General: Well-appearing female no acute respiratory distress HEENT: Normal cephalic atraumatic heart: Regular rate and rhythm no murmurs
Lungs: Clear no wheeze
Skin: 2 wounds left lateral and posterior calf with surrounding erythema and induration this is quite tender. No subcutaneous emphysema palpated
Vascular: The feet are warm bilaterally
Course
<Cole Villatoro PA-C - Last Filed: 02/03/25 17:47>
Orders/Labs/Results
Orders:
Orders
02/03/25 16:15
HYDROmorphone [Dilaudid] 0.5 mg IV NOW STA
02/03/25 16:41
Piperacillin/Tazo 3.375 Gram [Zosyn] 3.375 gram in 50 ml IV NOW
02/03/25 16:43
Vancomycin [Vancocin] 2,000 mg 0.9% Sodium Chloride 500 ml [Nss] 500 ml IV NOW
02/03/25 16:55
Complete Blood Count/With Diff Urgent
Comprehensive Metabolic Panel Urgent
02/03/25 17:46
Vancomycin [Vancocin] 1,500 mg 0.9% Sodium Chloride 500 ml [Nss] 500 ml IV NOW
Abnormal Lab Results
02/03/25
16:55
RBC 4.00 L 10^6/uL
(4.20-5.40)
MCHC 32.4 L g/dL
(33.0-37.0)
RDW 15.0 H %
(11.5-14.5)
MPV 10.8 H fL
(7.4-10.4)
Absolute Lymphs (auto) 1.0 L 10^3/uL
(1.2-3.4)
Absolute Monos (auto) 0.7 H 10^3/uL
(0.1-0.6)
Neutrophils % 77.3 H %
(42.2-75.2)
Lymphocytes % 12.5 L %
(20.5-51.1)
Sodium 132 L mmol/L
(135-145)
Potassium 5.5 H mmol/L
(3.5-5.1)
BUN 36 H mg/dl
(7-17)
Creatinine 1.2 H mg/dL
(0.6-1.0)
Glucose 188 H mg/dl
(70-99)
02/03/25 16:55
02/03/25 16:55
Vital Signs
Initial and Last Documented VS:
Initial Vital Signs
Temp Pulse Resp BP Pulse Ox
98.1 F 76 18 174/72 96
02/03/25 15:28 02/03/25 15:28 02/03/25 15:28 02/03/25 15:28 02/03/25 15:28
Last Documented Vital Signs
Temp Pulse Resp BP Pulse Ox
98.1 F 76 18 158/80 96
02/03/25 15:28 02/03/25 15:28 02/03/25 15:28 02/03/25 17:01 02/03/25 17:01
<Anibal Carbajal, DO - Last Filed: 02/03/25 17:50>
Orders/Labs/Results
Orders:
Orders
02/03/25 16:15
HYDROmorphone [Dilaudid] 0.5 mg IV NOW STA
02/03/25 16:41
Piperacillin/Tazo 3.375 Gram [Zosyn] 3.375 gram in 50 ml IV NOW
02/03/25 16:43
Vancomycin [Vancocin] 2,000 mg 0.9% Sodium Chloride 500 ml [Nss] 500 ml IV NOW
02/03/25 16:55
Complete Blood Count/With Diff Urgent
Comprehensive Metabolic Panel Urgent
02/03/25 17:46
Vancomycin [Vancocin] 1,500 mg 0.9% Sodium Chloride 500 ml [Nss] 500 ml IV NOW
Abnormal Lab Results
02/03/25
16:55
RBC 4.00 L 10^6/uL
(4.20-5.40)
MCHC 32.4 L g/dL
(33.0-37.0)
RDW 15.0 H %
(11.5-14.5)
MPV 10.8 H fL
(7.4-10.4)
Absolute Lymphs (auto) 1.0 L 10^3/uL
(1.2-3.4)
Absolute Monos (auto) 0.7 H 10^3/uL
(0.1-0.6)
Neutrophils % 77.3 H %
(42.2-75.2)
Lymphocytes % 12.5 L %
(20.5-51.1)
Sodium 132 L mmol/L
(135-145)
Potassium 5.5 H mmol/L
(3.5-5.1)
BUN 36 H mg/dl
(7-17)
Creatinine 1.2 H mg/dL
(0.6-1.0)
Glucose 188 H mg/dl
(70-99)
02/03/25 16:55
02/03/25 16:55
Vital Signs
Initial and Last Documented VS:
Initial Vital Signs
Temp Pulse Resp BP Pulse Ox
98.1 F 76 18 174/72 96
02/03/25 15:28 02/03/25 15:28 02/03/25 15:28 02/03/25 15:28 02/03/25 15:28
Last Documented Vital Signs
Temp Pulse Resp BP Pulse Ox
98.1 F 76 18 158/80 96
02/03/25 15:28 02/03/25 15:28 02/03/25 15:28 02/03/25 17:01 02/03/25 17:01
<Cole Villatoro PA-C - Last Filed: 02/03/25 17:47>
MDM/Problems Addressed
Differential Diagnosis Includes:
Patient with wounds to the left posterior lateral calf with suspected surrounding cellulitis. No fluctuance to suggest abscess. Recent ultrasound negative for DVT. Will check labs. Given diabetic nature we will opt for admission to hospital for
IV antibiotics
<Cole Villatoro PA-C - Last Filed: 02/03/25 17:47>
*Pulse Oximetry
SaO2: 96
Oxygen Mode of Delivery: Room air
Patient hypoxic: no
*Critical Care Note
Total Time (30-74mins, 75-104mins- exclusive of procedures): Not Applicable
<Cole Villatoro PA-C - Last Filed: 02/03/25 17:47>
Update Note
Update Note:
White blood cell count normal. I reviewed the ultrasound from 5 days ago which showed a normal CHAD and negative DVTs
ED Attending Note
<Cole Villatoro PA-C - Last Filed: 02/03/25 17:47>
-
Portions of this chart may have been created with voice recognition software.� Occasional wrong word or��sound alike� substitutions may have occurred due to the inherent limitations of voice recognition software.
<Anibal Carbajal DO - Last Filed: 02/03/25 17:50>
ED Attending Note
Patient seen and examined by attending physician: Yes
ED Attending Note:
I reviewed and agree with history treatment plan by Cole Villatoro PA-C. My exam revealed 79-year-old female afebrile, no acute distress. No respiratory distress. Normal pulse place. Erythema bilateral lower extremities lower legs. Open
wound left lower leg posterior. This has been worsening. Treat with Zosyn and vancomycin, admit to hospitalist. Do not suspect necrotizing fasciitis or toxic epidermal necrolysis.
Discharge Plan
Departure
Patient Disposition: Admit
Date of Disposition: 02/03/25
Time of Disposition: 17:46
Presentation/result/management discussed w/ accepting MD/DO: Hospitalist
Discharge Problem:
Cellulitis
Prescriptions:
No Action
Eliquis 5 mg Tablet
2.5 mg PO BID
insulin aspart U-100 [Novolog U-100 Insulin aspart] 100 unit/mL Solution
1 sliding scale dose continuous subcutaneous infusion DIRECTED
Rx Instructions:
18-25 units per day. Pt own insulin pump.
tramadol 50 mg Tablet
50 mg PO 4XD PRN (Reason: pain)
levothyroxine 100 mcg Tablet
100 mcg PO DAILY@0600 Qty: 30 0RF
Anoro Ellipta 62.5-25 mcg/actuation blister with device
1 inh inhalation DAILY Qty: 60 0RF
levalbuterol tartrate [Xopenex HFA] 45 mcg/actuation HFA aerosol inhaler
2 inh inhalation Q6H PRN (Reason: shortness of breath or wheezing) Qty: 15 0RF
Rx Instructions:
Give with spacer
Referrals:
Jody Guzman CRNP [Family Provider, Family Practice]
Interventions
Interventions:
*Risk Screen - Suicide Last Done: 02/03/25 15:28
*General Assessment Last Done: 02/03/25 16:57
*Neglect/Abuse Screening Last Done: 02/03/25 16:57
*ED- Fall Risk Assessment Last Done: 02/03/25 16:57
*ED COVID-19 Vaccine History Last Done: 02/03/25 16:57
*ED Influenza Vaccine History Last Done: 02/03/25 16:57
ED- Cardiac Assessment Last Done: 02/03/25 17:11
ED- Pulmonary Assessment Last Done: 02/03/25 16:57
ED-Skin Assessment Last Done: 02/03/25 16:57
Discharge Date and Time
Print Language: PUERT[place] RICAN
[2025-02-03] MEDS: DILAUDID 0.5 MG IV (17:02)
[2025-02-03] MEDS: ZOSYN 50 IV (17:09)
[2025-02-03 17:10] LABS: Hematocrit 37.4 % (37.0-47.0); Hemoglobin 12.1 g/dL (12.0-16.0); Mean Corp Hgb Conc. 32.4 g/dL (33.0-37.0); Mean Corpuscular Volume 93.5 fL (81.0-99.0); Nucleated Red Blood Cells % 0 %; Platelet Count 191 10^3/uL (130-400); Red Cell Dist. Width 15.0 % (11.5-14.5)
[2025-02-03 17:20] LABS: ALT (SGPT) 17 U/L (0-35); AST (SGOT) 26 U/L (14-36); Albumin 4.1 g/dl (3.5-5.0); Alkaline Phosphatase 69 U/L (38-126); Blood Urea Nitrogen 36 mg/dl (7-17); Calcium 9.5 mg/dl (8.4-10.2); Carbon Dioxide 30 mmol/L (22-30); Chloride 98 mmol/L (98-107); Estimated Creatinine Clearance 33 ml/min; Glucose 188 mg/dl (70-99); Potassium 5.5 mmol/L (3.5-5.1); Sodium 132 mmol/L (135-145); Total Protein 8.0 g/dl (6.3-8.2); eGFR 45.48
[2025-02-03] MEDS: VANCOCIN 530 MG IV (18:02)
--- NOTE | 2025-02-03 18:23 | HPS.HSE ---
Addendum entered and electronically signed by Vicente Yost MD 02/03/25 19:11:
This is an addendum to the H&P written by Abby Casas on 02/03/2025. �Patient seen and examined independently with PA.
79-year-old female past medical history of chronic wound of right ankle, paroxysmal atrial fibrillation on Eliquis, CKD 3, type diabetes with pump, hypothyroidism, Chua syndrome, presenting with left calf pain and new red wound starting 5 days ago
after recent CHAD/venous ultrasound. �Had some bleeding noticed afterwards. �No fever or chills. �No injury. �Sent in by Dr. Farnsworth of wound care.
Vital signs show blood pressure up to 174/72.
Labs show potassium 5.5. �Blood sugar 188.
CHAD/TBI performed on 12/28 bilaterally normal. �Venous ultrasound on 12/28 negative for DVT although there is deep vein reflux bilaterally.
Patient with possibly traumatic cellulitis of left lower extremity with associated wound of left calf. Wound consulted, cefazolin.
Hyperkalemia likely secondary to CKD. �IV fluid bolus to be given.
Original Note:
Family Physician
-
Family Physician: ANA Peguero
Chief Complaint
-
Left Lower Extremity Pain and Redness
History of Present Illness
Patient is an 79 y/o female past medical history of IDDM, Atrial Fibrillation, Hypothyroidism, CKD III and Chua syndrome who presents with increased pain and redness of her left lower extremity. Patient reports she has been following at the wound
care center for a small wound on her right ankle which has been improving. Patient reports last Friday she had an arterial ultrasounds. She states the tech had to grab her calf as part of the test which was very painful. She reports on Friday
she noticed blood on her sheets and realized she a new sore on her posterior left calf. She reports increasing pain and redness of the left calf since Friday and notes generalized fatigue. She had a previously scheduled wound care appointment
today and they promptly sent her to the emergency department for evaluation. Patient denies any fevers, sweats or chills.
Medical History
Past Medical History
Past Medical History: Reports Other
Additional Past Medical History:
Paroxysmal Atrial Fibrillation
Hypothyroidism
DM-II
CKD III
RLE Fasciitis
Chua Syndrome
- Lung Cancer
- Colon Cancer
- Endometrial Cancer
Past Surgical History: Reports Other
Additional Past Surgical History:
Right Upper Lobectomy
Right Hemicolectomy
MARILYN / BSA
Multiple RLE Surgeries / I&D
Right Femur ORIF
DCCV x 3
PVI Ablation (03/2022)
Social History
Tobacco: Former Smoker (Patient unsure when she quit smoking.)
Alcohol: None
Drug: None
Family History
Family History: Not pertinent
Allergies / Home Medications
Allergies reflects when Allergies were last updated in [facility].
Home Medications with original date entered in [facility]
Allergy/Medication List:
Allergies
Allergy/AdvReac Type Severity Reaction Status Date / Time
acetaminophen Allergy GI upset Verified 02/03/25 15:28
diltiazem Allergy Hives Verified 02/03/25 15:28
dronedarone Allergy Hives Verified 02/03/25 15:28
gluten Allergy Hives Verified 02/03/25 15:28
Influenza Virus Vaccines Allergy Tongue/throat Verified 02/03/25 15:28
Swelling
Iodinated Contrast Media Allergy Hives Verified 02/03/25 15:28
latanoprost Allergy Hives Verified 02/03/25 15:28
metoprolol Allergy Hives Verified 02/03/25 15:28
naproxen (From Aleve) Allergy Hives Verified 02/03/25 15:28
povidone-iodine Allergy Blisters Verified 02/03/25 15:28
zinc Allergy Hives Verified 02/03/25 15:28
Home Medications
apixaban 5 mg tablet (Eliquis) 2.5 mg PO BID Blood Clot Prevention/Tx 04/10/22
insulin aspart U-100 100 unit/mL subcutaneous solution (Novolog U-100 Insulin aspart) 1 sliding scale dose continuous subcutaneous infusion DIRECTED Diabetes 05/17/22
tramadol 50 mg tablet 50 mg PO HSPRN PRN pain 03/27/24
digoxin 125 mcg (0.125 mg) tablet 125 mcg PO DAILY 02/03/25
levothyroxine 125 mcg tablet 875 mcg PO BROWN 02/03/25
Review of Systems
-
A 12 point ROS was completed and negative except as noted: Yes
Constitutional: Denies Fever or Chills
Respiratory: Denies Cough or Trouble Breathing
Cardiac: Denies Chest Pain or Palpitations
Abdomen/GI: Denies Abdominal Pain, Nausea, Vomiting or Diarrhea
Physical Exam
Vital Signs
Vital Signs
Temp Pulse Resp BP Pulse Ox
98.1 F 76 18 158/80 96
02/03/25 15:28 02/03/25 15:28 02/03/25 15:28 02/03/25 17:01 02/03/25 17:01
Physical Exam
General: Comfortable and Conversant
HEENT: Anicteric and Moist mucous membranes
Respiratory: Clear and Non Labored Respirations
Cardiac: S1/S2 and Regular Rhythm
GI: Soft and Non Tender
Rectal: Deferred by Provider
Musculoskeletal: No Clubbing, No Cyanosis and Edema, Left Lower Extremity
Skin: Warm, Dry and Other (Deep purple area of bruising on posterior left calf with surrounding erythema with increased warmth to touch)
Neuro: Awake, Alert, Oriented and Nonfocal/grossly intact
Laboratory Results
-
02/03/25 16:55
02/03/25 16:55
Laboratory Results
Total Bilirubin 0.8 mg/dl (0.2-1.3) 02/03/25 16:55
AST 26 U/L (14-36) 02/03/25 16:55
ALT 17 U/L (0-35) 02/03/25 16:55
Alkaline Phosphatase 69 U/L (38-126) 02/03/25 16:55
Data Reviewed
-
Lab Data: Labs Reviewed by me
Impression/Plan
-
Left Lower Extremity Cellulitis
-Continue Ancef
-Consult Wound Care
Hyperkalemia, mild, likely related to CKD
-Give IVFs overnight
-Recheck in AM
Paroxysmal Atrial Fibrillation
-Continue Eliquis for anticoagulation
-Continue digoxin
Hypothyroidism
-Continue levothyroxine
Diabetes Mellitus, Type II - Insulin-Dependent
-HgbA1c 7.4 in December 2024
-Continue patient's own insulin pump
CKD III
-Creatinine at baseline
Chua Syndrome
- Multiple prior malignancies including Lung Cancer, Colon Cancer, and Endometrial Cancer
DVT proph: Eliquis
Code Status: DNR
[2025-02-03] MEDS: NSS 1000 IV (21:31)
[2025-02-03] MEDS: ELIQUIS 2.5 MG PO (21:32)
[2025-02-03 21:56] LABS: Glucose - Point of Care 160 mg/dl (70-99)
[2025-02-03] MEDS: PT'S OWN INSULIN PUMP - NovoLOG 1 UNIT SC (22:30)
[2025-02-03] MEDS: DILAUDID 0.25 MG IV (22:46)
[2025-02-04] MEDS: ANCEF 10 IV ×2 (05:33→18:12)
[2025-02-04 07:24] LABS: Hematocrit 36.1 % (37.0-47.0); Hemoglobin 11.1 g/dL (12.0-16.0); Mean Corp Hgb Conc. 30.7 g/dL (33.0-37.0); Mean Corpuscular Volume 98.4 fL (81.0-99.0); Platelet Count 169 10^3/uL (130-400); Red Cell Dist. Width 15.2 % (11.5-14.5)
--- NOTE | 2025-02-04 07:39 | PN.DE.MGMTRT ---
Insulin Management
- -
02/04/2025: Diabetes Management Consult - Patient using insulin pump
79 year old female with PMH: T1DM, Atrial Fibrillation, colon, endometrial and lung CA, Hypothyroidism, CKD III and Chua syndrome who presents with increased pain and redness of her left lower extremity. Last A1C was 7.4% on 01/04/25. Cr 1.0,
eGFR>60
Prior to admission was using the Tandem tslim insulin pump with control IQ [employer] XC infusion sets NovoLog and DexCom G7. She sees Dr. Dow, endocrine, for ongoing diabetes management, was seen in the office 1 week ago.
Patient is awake alert and oriented resting in bed, able to discuss diabetes care plan.
Reports poor appetite and has not eaten much in the last 24 hrs.
current glucose reading per pump is 98 at the time of my visit.
Glucose has ranged from 80 to 160 since admission. Patient is able to manage her insulin pump and deliver meal and correction boluses independently.
Pump worksheet at bedside.
Discussed with patients nurse.
Pump settings:
Basal Correction CHO target
12am 0.225 50 17 110
6AM 0.35 50 18 110
5PM 0.25 50 17 110
9pm 0.2 50 17 110
24 HOUR BASAL TOTAL 6.8
Diabetes History
- -
Type of Diabetes: 1
Pre-Admission Diabetes Regimen
02/03/25
16:55
Creatinine 1.2 H
Insulin Pump Settings
IP Diabetes Regimen
02/03/25 02/03/25
16:55 21:54
Glucose 188 H
POC Glucose 160 H
Patient Education
[2025-02-04 07:55] LABS: Blood Urea Nitrogen 24 mg/dl (7-17); Calcium 8.8 mg/dl (8.4-10.2); Carbon Dioxide 26 mmol/L (22-30); Chloride 106 mmol/L (98-107); Estimated Creatinine Clearance 37 ml/min; Glucose 80 mg/dl (70-99); Magnesium 1.9 mg/dl (1.6-2.3); Potassium 4.5 mmol/L (3.5-5.1); Sodium 138 mmol/L (135-145); eGFR 56.60
[2025-02-04] MEDS: PT'S OWN INSULIN PUMP - NovoLOG SC ×4 (08:00→22:10)
[2025-02-04 08:23] LABS: Glucose - Point of Care 88 mg/dl (70-99)
[2025-02-04] MEDS: ELIQUIS 2.5 MG PO ×2 (08:40→20:50)
[2025-02-04 08:50] VITALS: BP 170/76
--- NOTE | 2025-02-04 08:53 | W.PN.HOSP.TC ---
Today's Communication/Plan
-
Continue IV Ancef, pain medications, wound care
Assessment / Plan
Assessment / Plan
HPI: 79-year-old female past medical history of chronic wound of right ankle, paroxysmal atrial fibrillation on Eliquis, CKD 3, type diabetes with pump, hypothyroidism, Chua syndrome, presenting with left calf pain and new red wound starting 5 days
ago after recent CHAD/venous ultrasound. �Had some bleeding noticed afterwards. �No fever or chills. �No injury. �Sent in by Dr. Farnsworth of wound care. CHAD/TBI performed on 12/28 bilaterally normal. Venous ultrasound on 12/28 negative for DVT although
there is deep vein reflux bilaterally. Patient with possibly traumatic cellulitis of left lower extremity with associated wound of left calf. Wound consulted, cefazolin. Hyperkalemia likely secondary to CKD. �IV fluid bolus to be given.
Left Lower Extremity Cellulitis
-Continue Ancef D2, continue wound care
-Trend fever and white count
Hyperkalemia, mild, likely related to CKD
- Resolved with IV fluids
Paroxysmal Atrial Fibrillation
-Continue Eliquis for anticoagulation
-Continue digoxin
Hypothyroidism
-Continue levothyroxine
Diabetes Mellitus, Type II - Insulin-Dependent
-HgbA1c 7.4 in December 2024
- Appreciate diabetes nurse practitioner input, continue patient's own insulin pump
CKD III
-Creatinine at baseline
Chua Syndrome
- Multiple prior malignancies including Lung Cancer, Colon Cancer, and Endometrial Cancer
DVT proph: Eliquis
Code Status: DNR
Total time spent to see the patient on the floor, examine the patient, review data and lab results, discuss treatment plan with patient, nursing staff around 45 minutes.
Physical Exam
General: No acute distress
HEENT: Normocephalic, Atraumatic, EOMI, MMM
Respiratory: Clear to Auscultation bilaterally
Cardiac: Normal S1/S2, Regular Rate and Rhythm
GI: Soft, Nontender, Nondistended, Normal Bowel Sounds
Extremities: No Clubbing, Cyanosis, or Edema
Neuro: Nonfocal/Grossly Intact
Psych: Calm, Cooperative
Derm:
Left lower extremity wound with surrounding warmth, erythema and tenderness
Anticipated Discharge: 24 - 48 hours
Subjective/Interval History
-
Date of Service: February 04, 2025
Patient reports that her left lower extremity pain is 8 out of 10 in intensity today, it was 10 out of 10 yesterday. She denies chest pain, denies shortness of breath. No fever, no vomiting.
Objective Data
-
Labs:
Laboratory Results
02/04/25
05:44
WBC 4.8
Hgb 11.1 L
Hct 36.1 L
Plt Count 169
Sodium 138
Potassium 4.5
Chloride 106
Carbon Dioxide 26
BUN 24 H
Creatinine 1.0
Glucose 80
Calcium 8.8
Vital Signs:
Vital Signs
Temp Pulse Resp BP Pulse Ox
97.9 F 85 16 170/76 92
02/04/25 08:50 02/04/25 08:50 02/04/25 08:50 02/04/25 08:50 02/04/25 08:50
I&O
02/03/25 02/04/25 02/05/25
06:59 06:59 06:59
Intake Total 1040 / 1040
Balance 1040 / 1040
[2025-02-04 11:36] LABS: Glucose - Point of Care 89 mg/dl (70-99)
[2025-02-04] MEDS: LANOXIN 125 MCG PO (11:54)
[2025-02-04] MEDS: DILAUDID 0.25 MG IV ×3 (11:54→20:55)
[2025-02-04] MEDS: PT'S OWN INSULIN PUMP - NovoLOG 3.8 UNIT SC (13:05)
--- NOTE | 2025-02-04 15:24 | CM ---
telecom network manager reviewed patient's chart and met with patient and patient lives with daughter in a multilevel home, no steps, patient has 1st floor set up, patient is independent with adl's and uses a cane or walker with ambulation. Patient states she
goes to the woundcare center as outpatient.
PCP: Jody Guzman
Pharmacy: [facility]
Plan; Home with daughter no needs when stable.
[2025-02-04 15:51] VITALS: BP 188/79
--- NOTE | 2025-02-04 16:38 | WOUNDNOTE ---
LEFT POSTERIOR LEG
--- NOTE | 2025-02-04 16:43 | WOUNDNOTE ---
RIGHT ANKLE WOUND
[2025-02-04] MEDS: PT'S OWN INSULIN PUMP - NovoLOG 4 UNIT SC (16:45)
--- NOTE | 2025-02-04 16:52 | WOUNDNOTE ---
WOC RN NOTE: Reviewed chart and met with patient. Patient admitted with left posterior leg wound, now with cellulitis. Patient reports wound occurred after manipulation of leg during vascular study a few weeks ago. Patient also follows and C for
left lower ankle wound. Ankle wound was recently debrided on 02/02 and wound bed appears pink. Patient has been prescribed Hydrogel to left ankle and that continues to be appropriate. Will recommend local wound care to left calf. Patient
demonstrates ability to turn in bed. Sacrum and heels intact. Patient reports fair appetite. Patient would like to hold off on compression in hospital and only wear at home. Will follow as needed.
[2025-02-04 17:09] LABS: Glucose - Point of Care 101 mg/dl (70-99)
[2025-02-04 22:46] LABS: Glucose - Point of Care 145 mg/dl (70-99)
[2025-02-04 22:55] VITALS: BP 186/81
[2025-02-05] MEDS: ANCEF 10 IV ×2 (05:34→17:21)
[2025-02-05 07:00] VITALS: BP 168/79
[2025-02-05] MEDS: ELIQUIS 2.5 MG PO ×2 (07:40→19:28)
[2025-02-05] MEDS: PT'S OWN INSULIN PUMP - NovoLOG SC ×3 (07:42→22:31)
[2025-02-05 07:50] LABS: Glucose - Point of Care 130 mg/dl (70-99)
--- NOTE | 2025-02-05 08:58 | W.PN.HOSP.TC ---
Today's Communication/Plan
-
see bold
Assessment / Plan
Assessment / Plan
HPI: 79-year-old female past medical history of chronic wound of right ankle, paroxysmal atrial fibrillation on Eliquis, CKD 3, type diabetes with pump, hypothyroidism, Chua syndrome, presenting with left calf pain and new red wound starting 5 days
ago after recent CHAD/venous ultrasound. �Had some bleeding noticed afterwards. �No fever or chills. �No injury. �Sent in by Dr. Farnsworth of wound care. CHAD/TBI performed on 12/28 bilaterally normal. Venous ultrasound on 12/28 negative for DVT although
there is deep vein reflux bilaterally. Patient with possibly traumatic cellulitis of left lower extremity with associated wound of left calf. Wound consulted, cefazolin. Hyperkalemia likely secondary to CKD. �IV fluid bolus to be given.
Left Lower Extremity Cellulitis
-Continue Ancef D3, continue wound care
-Trend fever and white count
Nausea
- Trial of Zofran, check EKG for QTc monitoring
Hyperkalemia, mild, likely related to CKD
- Resolved with IV fluids
Paroxysmal Atrial Fibrillation
-Continue Eliquis for anticoagulation
-Continue digoxin
Hypothyroidism
-Continue levothyroxine
Diabetes Mellitus, Type II - Insulin-Dependent
-HgbA1c 7.4 in December 2024
- Appreciate diabetes nurse practitioner input, continue patient's own insulin pump
CKD III
-Creatinine at baseline
Chua Syndrome
- Multiple prior malignancies including Lung Cancer, Colon Cancer, and Endometrial Cancer
DVT proph: Eliquis
Code Status: DNR
Total time spent to see the patient on the floor, examine the patient, review data and lab results, discuss treatment plan with patient, nursing staff around 40 minutes.
Physical Exam
General: No acute distress
HEENT: Normocephalic, Atraumatic, EOMI, MMM
Respiratory: Clear to Auscultation bilaterally
Cardiac: Normal S1/S2, Regular Rate and Rhythm
GI: Soft, Nontender, Nondistended, Normal Bowel Sounds
Extremities: No Clubbing, Cyanosis, or Edema
Neuro: Nonfocal/Grossly Intact
Psych: Calm, Cooperative
Derm:
Left lower extremity wound with surrounding warmth, erythema and tenderness
Anticipated Discharge: Within 24 hours
Subjective/Interval History
-
Date of Service: February 05, 2025
Patient reports feeling nauseous. She also complains that her left lower extremity pain is 7 out of 10 in intensity. Denies vomiting. Reports feeling unwell overall today. Denies chest pain, denies shortness of breath. No fever, no vomiting.
Objective Data
-
Vital Signs:
Vital Signs
Temp Pulse Resp BP Pulse Ox
98.4 F 90 16 168/79 89
02/05/25 07:00 02/05/25 07:00 02/05/25 07:00 02/05/25 07:00 02/05/25 07:00
I&O
02/04/25 02/05/25 02/06/25
06:59 06:59 06:59
Intake Total 1040 / 1040
Balance 1040 / 1040
[2025-02-05] MEDS: DILAUDID 0.25 MG IV ×3 (10:34→19:29)
[2025-02-05] MEDS: ZOFRAN 4 MG IV (10:40)
[2025-02-05] MEDS: MIRALAX 17 GRAMS PO (10:40)
[2025-02-05 11:16] LABS: Glucose - Point of Care 116 mg/dl (70-99)
[2025-02-05 11:27] LABS: Hematocrit 41.3 % (37.0-47.0); Hemoglobin 13.1 g/dL (12.0-16.0); Mean Corp Hgb Conc. 31.7 g/dL (33.0-37.0); Mean Corpuscular Volume 99.0 fL (81.0-99.0); Nucleated Red Blood Cells % 0 %; Platelet Count 186 10^3/uL (130-400); Red Cell Dist. Width 15.2 % (11.5-14.5)
[2025-02-05] MEDS: PT'S OWN INSULIN PUMP - NovoLOG 4 UNIT SC (11:43)
[2025-02-05] MEDS: LANOXIN 125 MCG PO (11:45)
[2025-02-05 12:03] LABS: Blood Urea Nitrogen 18 mg/dl (7-17); Calcium 9.4 mg/dl (8.4-10.2); Carbon Dioxide 29 mmol/L (22-30); Chloride 102 mmol/L (98-107); Estimated Creatinine Clearance 37 ml/min; Glucose 103 mg/dl (70-99); Magnesium 1.8 mg/dl (1.6-2.3); Potassium 4.8 mmol/L (3.5-5.1); Sodium 137 mmol/L (135-145); eGFR 56.60
[2025-02-05 15:21] VITALS: BP 154/72
[2025-02-05 17:25] LABS: Glucose - Point of Care 126 mg/dl (70-99)
[2025-02-05 21:42] LABS: Glucose - Point of Care 133 mg/dl (70-99)
[2025-02-05 23:00] VITALS: BP 152/65
[2025-02-05] MEDS: APRESOLINE 25 MG PO (23:25)
[2025-02-06] MEDS: ANCEF 10 IV (05:42)
[2025-02-06] MEDS: SYNTHROID 875 MCG PO (06:21)
[2025-02-06 07:57] VITALS: BP 167/87
[2025-02-06] MEDS: ELIQUIS 2.5 MG PO ×2 (08:00→20:50)
[2025-02-06] MEDS: PT'S OWN INSULIN PUMP - NovoLOG 6.2 UNIT SC (08:00)
--- NOTE | 2025-02-06 08:00 | PTCARENOTE ---
02/06- Patient is calm and cooperative, AAOX3 but states she does not want us doing accuchecks anymore because she keeps track of it on her phone. Advised she is still under our care, and we do need to keep track in our own documentation of her
sugars. She states we can do that through her and her CGM blanca. Attempted to educate patient that a fresh blood sample is a little more accurate than a CGM, however CGMs are still accurate. She verbalized understanding but still refuses any
further accuchecks at this time.
[2025-02-06] MEDS: MIRALAX 17 GRAMS PO (08:05)
[2025-02-06 08:26] LABS: Procalcitonin 0.10 ng/ml (0.0-0.25)
--- NOTE | 2025-02-06 10:09 | W.PN.HOSP.TC ---
Today's Communication/Plan
-
see bold
Assessment / Plan
Assessment / Plan
HPI: 79-year-old female past medical history of chronic wound of right ankle, paroxysmal atrial fibrillation on Eliquis, CKD 3, type diabetes with pump, hypothyroidism, Chua syndrome, presenting with left calf pain and new red wound starting 5 days
ago after recent CHAD/venous ultrasound. �Had some bleeding noticed afterwards. �No fever or chills. �No injury. �Sent in by Dr. Farnsworth of wound care. CHAD/TBI performed on 12/28 bilaterally normal. Venous ultrasound on 12/28 negative for DVT although
there is deep vein reflux bilaterally. Patient with possibly traumatic cellulitis of left lower extremity with associated wound of left calf. Wound consulted, cefazolin. Hyperkalemia likely secondary to CKD. �IV fluid bolus to be given.
Left Lower Extremity Cellulitis
-Patient reports being nauseous, she thinks it is from IV Ancef
-Appreciate ID input, IV Ancef changed to dicloxacillin 500 mg PO QID for another 7 days
-Trend fever and white count
-Follow up with PCP and wound care center
Nausea
- Can try promethazine as needed
QTc prolongation
- Avoid Zofran and other QTc prolonging agents
Hyperkalemia, mild, likely related to CKD
- Resolved with IV fluids
Essential hypertension
- Patient states she is allergic to lisinopril, although it is not on her list of allergies.
- She has many allergies, will trial amlodipine 5 mg daily, continue hydralazine as needed
Paroxysmal Atrial Fibrillation
-Continue Eliquis for anticoagulation
-Continue digoxin
Hypothyroidism
-Continue levothyroxine
Diabetes Mellitus, Type II - Insulin-Dependent
-HgbA1c 7.4 in December 2024
- Appreciate diabetes nurse practitioner input, continue patient's own insulin pump
CKD III
-Creatinine at baseline
Chua Syndrome
- Multiple prior malignancies including Lung Cancer, Colon Cancer, and Endometrial Cancer
DVT proph: Eliquis
Code Status: DNR
Dispo - PT rec HH
Total time spent to see the patient on the floor, examine the patient, review data and lab results, discuss treatment plan with patient, nursing staff around 51 minutes.
Physical Exam
General: No acute distress
HEENT: Normocephalic, Atraumatic, EOMI, MMM
Respiratory: Clear to Auscultation bilaterally
Cardiac: Normal S1/S2, Regular Rate and Rhythm
GI: Soft, Nontender, Nondistended, Normal Bowel Sounds
Extremities: No Clubbing, Cyanosis, or Edema
Neuro: Nonfocal/Grossly Intact
Psych: Calm, Cooperative
Derm:
Left lower extremity wound with surrounding warmth, erythema and tenderness
Anticipated Discharge: 24 - 48 hours
Subjective/Interval History
-
Date of Service: February 06, 2025
Patient reports feeling weak, tired, and nauseous. She was able to tolerate her dinner last night. Her left leg wound pain is improved at 5 out of 10 in intensity, was 7 out of 10 in intensity. Denies chest pain, denies shortness of breath. No
fever, no vomiting.
Objective Data
-
Vital Signs:
Vital Signs
Temp Pulse Resp BP Pulse Ox
98.1 F 80 17 167/87 94
02/06/25 07:57 02/06/25 07:57 02/06/25 07:57 02/06/25 07:57 02/06/25 07:57
I&O
02/05/25 02/06/25 02/07/25
06:59 06:59 06:59
Intake Total 480 / 480
Balance 480 / 480
--- NOTE | 2025-02-06 11:17 | CON.ID ---
Consultation
-
Date/Time Consultation Requested: 02/06/25 10:13
Date/Time Consultation Performed: 02/06/25 11:18
Requesting Provider: Dr Steven
Performing Provider: Dr Azevedo
Reason for Consultation: cellulitis
Chief Complaint / Past History
Chief Complaint
left lower extremity pain
History of Present Illness
Ms Felix is an 79 year old female with history of Dm2, CKDIII who presented here 02/03 for left lower extremity pain and redness. She has a chronic wound of the right lateral malleolus present since december 2024. She had arterial US last week.
She developed a new sore on the posterior left calf which is painful. She was seen in follow up in the wound care center and the left leg had increasing erythema and pain. She also noted fatigue. No fevers or chills.
Since arrival here she has been afebrile, bp stable, wbc 7.6, hgb 12.1, plt 191, L shift is noted, na 132, cr initially 1.2 now 1.0, a1c 7.4, t bili 0.8, ast 26, alt 17, alk phos 69, procalcitonin 0.1, 01/28 venous US no DVT, 01/28 CHAD: WNL
bilaterally, no cultures have been done, patient is currently on cefazolin. She has had ongoing nausea which she is attributing to the cefazolin. Her Qtc is >500. She has less redness, swelling and pain since arrival.
Past History
Additional Past Medical History:
Paroxysmal Atrial Fibrillation
Hypothyroidism
DM-II
CKD III
RLE Fasciitis
Chua Syndrome
- Lung Cancer
- Colon Cancer
- Endometrial Cancer
Additional Past Surgical History:
Right Upper Lobectomy
Right Hemicolectomy
MARILYN / BSA
Multiple RLE Surgeries / I&D
Right Femur ORIF
DCCV x 3
PVI Ablation (03/2022)
Allergy History:
acetaminophen Allergy (Verified 02/03/25 23:13)
GI upset
diltiazem Allergy (Verified 02/03/25 15:28)
Hives
dronedarone Allergy (Verified 02/03/25 15:28)
Hives
gluten Allergy (Verified 02/03/25 15:28)
Hives
Influenza Virus Vaccines Allergy (Verified 02/03/25 15:28)
Tongue/throat Swelling
Iodinated Contrast Media Allergy (Verified 02/03/25 15:28)
Hives
latanoprost Allergy (Verified 02/03/25 15:28)
Hives
metoprolol Allergy (Verified 02/03/25 15:28)
Hives
naproxen (From Aleve) Allergy (Verified 02/03/25 15:28)
Hives
povidone-iodine Allergy (Verified 02/03/25 15:28)
Blisters
zinc Allergy (Verified 02/03/25 15:28)
Hives
aspirin Adverse Reaction (Verified 02/03/25 23:11)
Nausea
Medications Reviewed: Yes
Social History
Tobacco: Former Smoker
Alcohol: None
Drug: None
Family History
Family History: Not Pertinent
Review of Systems
Review of Systems
Constitutional: Denies Fever or Chills
Respiratory: Denies Cough or Trouble Breathing
Cardiac: Denies Chest Pain or Palpitations
Abdomen/GI: Denies Abdominal Pain, Nausea, Vomiting or Diarrhea
Vital Signs
Temp Pulse Resp BP Pulse Ox
98.1 F 80 17 167/87 98
02/06/25 07:57 02/06/25 07:57 02/06/25 07:57 02/06/25 07:57 02/06/25 08:00
Physical Exam
Physical Exam
Constitutional: No Acute Distress
Cardiovascular: Regular Rate and S1/S2; Negative Murmur or Rub
Pulmonary: Clear and Symmetric; Negative Wheezes, Rales or Rhonchi
Gastrointestinal: Soft, Non Tender, Non Distended and Normal Bowel Sounds
Skin: Warm and Dry; Negative Rash or Jaundice
Wound: Other (L mid calf superficial abrasion, mild surrounding erythema, warmth and tenderness in the dependant portion of the skin; right LE wound without surrounding erythema or warmth)
Lab / Diagnostic Study Results
02/05/25 11:22
02/05/25 11:22
Abs Immat Gran (auto) 0.0 10^3/uL (0-0.05) 02/05/25 11:22
Absolute Neuts (auto) 4.6 10^3/uL (1.4-6.5) 02/05/25 11:22
Absolute Lymphs (auto) 0.7 10^3/uL (1.2-3.4) L 02/05/25 11:22
Absolute Monos (auto) 0.4 10^3/uL (0.1-0.6) 02/05/25 11:22
Absolute Basos (auto) 0.0 10^3/uL (0-0.2) 02/05/25 11:22
Immature Gran % 0.2 % (0-0.5) 02/05/25 11:22
Neutrophils % 79.0 % (42.2-75.2) H 02/05/25 11:22
Lymphocytes % 11.9 % (20.5-51.1) L 02/05/25 11:22
Monocytes % 7.0 % (1.7-9.3) 02/05/25 11:22
Eosinophils % 1.2 % (0-6) 02/05/25 11:22
Basophils % 0.7 % (0-2) 02/05/25 11:22
Procalcitonin 0.10 ng/ml (0.0-0.25) 02/06/25 06:50
Assessment / Plan
Left Lower extremity Cellulitis - nonpurulent
Acute Wound of the left lower extremtiy
Dm2
CKD3
- nausea with cefazolin and long qtc
- switched to dicloxacillin 500 mg PO QID for another 7 days
- only trace edema
- follow up with PCP and wound care center
Care Review
Plan reviewed with: Physician (Dr Steven - nausea, cellulitis)
[2025-02-06] MEDS: PT'S OWN INSULIN PUMP - NovoLOG SC ×2 (12:37→16:31)
[2025-02-06] MEDS: SENOKOT-S PO (12:38)
[2025-02-06] MEDS: LANOXIN 125 MCG PO (14:00)
[2025-02-06] MEDS: DYNAPEN 500 MG PO ×2 (14:17→19:04)
[2025-02-06 15:21] VITALS: BP 153/59
[2025-02-06] MEDS: DILAUDID 0.25 MG IV (15:43)
[2025-02-06] MEDS: NORVASC 5 MG PO (16:31)
[2025-02-06] MEDS: SENOKOT-S 2 TABLET PO (20:50)
[2025-02-06] MEDS: PT'S OWN INSULIN PUMP - NovoLOG 3.82 UNIT SC (22:22)
[2025-02-06 23:02] VITALS: BP 142/68
[2025-02-07] MEDS: DYNAPEN 500 MG PO ×4 (00:32→17:26)
[2025-02-07 07:20] VITALS: BP 178/89
[2025-02-07] MEDS: MIRALAX 17 GRAMS PO (07:25)
[2025-02-07] MEDS: ELIQUIS 2.5 MG PO (07:25)
[2025-02-07] MEDS: SENOKOT-S 2 TABLET PO (07:25)
[2025-02-07] MEDS: NORVASC 5 MG PO (07:26)
[2025-02-07] MEDS: PT'S OWN INSULIN PUMP - NovoLOG SC ×3 (07:29→17:28)
--- NOTE | 2025-02-07 08:12 | PN.DE.MGMTRT ---
Insulin Management
- -
02/07/2025: Diabetes Management Consult - Patient using insulin pump
79 year old female with PMH: T1DM, Atrial Fibrillation, colon, endometrial and lung CA, Hypothyroidism, CKD III and Chua syndrome who presents with increased pain and redness of her left lower extremity. Last A1C was 7.4% on 01/04/25. Cr 1.0,
eGFR>60
Prior to admission was using the Tandem tslim insulin pump with control IQ [employer] XC infusion sets NovoLog and DexCom G7. She sees Dr. Dow, endocrine, for ongoing diabetes management, was seen in the office 1 week ago.
Patient is awake alert and oriented resting in bed, able to discuss diabetes care plan.
Of note, patient has had no POC glucose testing since 02/05, Nursing reports that pt refused POC testing.
current glucose reading via pt's CGM is 143 at the time of my visit. Otherwise, no other glucose numbers on records
Patient states she has been able to administer mealtime bolus insulin based off her CGM.
Discussed with pt and emphasized importance of glucose testing with hospital machine while she is hospitalized as part of hospital care, she was unhappy about it at first but agreed to future glucose checks. Pump worksheet at bedside.
Discussed with patients nurse.
Pump settings:
Basal Correction CHO target
12am 0.225 50 17 110
6AM 0.35 50 18 110
5PM 0.25 50 17 110
9pm 0.2 50 17 110
24 HOUR BASAL TOTAL 6.8
Diabetes History
- -
Type of Diabetes: 1
Pre-Admission Diabetes Regimen
Insulin Pump Settings
IP Diabetes Regimen
Meal type: Lunch
Meal type: Breakfast
Amount consumed: 80%
Amount consumed: 75%
Patient Education
--- NOTE | 2025-02-07 08:39 | W.PN.HOSP.TC ---
Today's Communication/Plan
-
Discharge planning today
Assessment / Plan
Assessment / Plan
Physical exam:
General: Well Developed, Well Nourished and No Apparent Distress
HEENT: Normocephalic, Atraumatic and Moist Mucous Membranes
Respiratory: Clear to Auscultation; Negative Wheezes, Rales or Rhonchi
Cardiac: Regular Rhythm and S1/S2
GI: Soft, Nontender and Nondistended
Musculoskeletal: No Clubbing, No Cyanosis and No Edema
Skin: Left lower extremity erythema and tenderness improving and mild superficial wound/abrasion present.
Neuro: Awake, Alert and Oriented, no neurological deficit
Psych: Calm
A/P:
Left lower extremity cellulitis:
Continue oral dicloxacillin
ID cleared her for discharge today
PT OT recommended home health
Hypertension:
Added Norvasc to her current regimen
Nausea:
Likely medication related and improved
Rest of medical problems:
Diabetes mellitus
CKD stage III
Hyperkalemia, resolved
Paroxysmal A-fib
Hypothyroidism
Chua syndrome
DVT prophylaxis:
Eliquis
CODE STATUS:
Full code
Anticipated Discharge: Today
Subjective/Interval History
-
Date of Service: February 07, 2025
Patient feels better overall. Afebrile
Objective Data
-
Vital Signs:
Vital Signs
Temp Pulse Resp BP Pulse Ox
98.3 F 74 18 178/89 91
02/06/25 23:02 02/07/25 07:26 02/06/25 23:02 02/07/25 07:26 02/06/25 23:02
I&O
02/06/25 02/07/25 02/08/25
06:59 06:59 06:59
Intake Total 480 / 480 600 / 600
Balance 480 / 480 600 / 600
--- NOTE | 2025-02-07 09:30 | CM ---
Patient seen at bedside on . Patient stated that she is for discharge home and reviewed IMM with CM. Patient signed form and placed on chart. Patient confirmed no needs for discharge. CM will continue to follow for discharge planning needs.
Plan; home with no needs.
--- NOTE | 2025-02-07 10:26 | W.PN.ID1 ---
Date of Service
Date of Service: February 07, 2025
Today's Communication
- continue dicloxacillin 500 mg PO QID for another 6 days
- only trace edema
- follow up with PCP and wound care center
Assessment / Plan
Left Lower extremity Cellulitis - nonpurulent
Acute Wound of the left lower extremtiy
Dm2
CKD3
- continue dicloxacillin 500 mg PO QID for another 6 days
- only trace edema
- follow up with PCP and wound care center
Chief Complaint
-: Cellulitis
Subjective / Review of Systems
afebrile
hypertensive
no events overnight
Vital Signs / Physical Exam
Vital Signs
Vital Signs
Temp Pulse Resp BP Pulse Ox
98.2 F 74 18 178/89 91
02/07/25 07:20 02/07/25 07:26 02/07/25 07:20 02/07/25 07:26 02/07/25 07:20
Physical Exam
Constitutional: No Acute Distress
Cardiovascular: Regular Rate and S1/S2; Negative Murmur or Rub
Pulmonary: Clear and Symmetric; Negative Wheezes or Rales
Gastrointestinal: Soft, Non Tender, Non Distended and Normal Bowel Sounds
Skin: Warm, Dry and Rash (minimal residual erythema, trace edema); Negative Jaundice
Objective Data
Lab Data
Lab Results
02/05/25 11:22
02/05/25 11:22
Estimated Creat Clear 37 ml/min 02/05/25 11:22
Total Bilirubin 0.8 mg/dl (0.2-1.3) 02/03/25 16:55
AST 26 U/L (14-36) 02/03/25 16:55
ALT 17 U/L (0-35) 02/03/25 16:55
Alkaline Phosphatase 69 U/L (38-126) 02/03/25 16:55
Most recent labs reviewed.
--- NOTE | 2025-02-07 10:51 | W.DCSUMMARY ---
Discharge Summary
Discharge Data
Date of Admission: 02/03/25
Date of Discharge: 02/07/25
-
Pending Results: No
Hospital Course
Patient 79 years old female with history of diabetes mellitus, CKD, hypertension, A-fib, came into the hospital left lower extremity cellulitis. Patient was started on antibiotics and ID consulted. She had some adverse reaction to cefazolin with
nausea and ID recommended to switch to dicloxacillin and she did well with no changes. She also was noted to have elevated blood pressures and she was started on low doses of calcium channel ya with amlodipine. Patient nausea improved and she
has remained afebrile and hemodynamically stable. Her cellulitis have improved as well. Patient also had chronic wound on the right lateral malleolus and ultrasound a week prior to coming into the hospital that was unremarkable. She also had a
new wound on the left calf area that will continue to follow-up as outpatient. ID has cleared her for discharge today. She participated with PT and OT recommended home health. design project manager consulted for home health. She will be discharged in
stable condition today.
Discharge Plan
-
Patient Disposition: Home with Home Care
Discharge Diagnosis/Procedures: Cellulitis left lower extremity. Diabetes mellitus type 2. Chronic kidney disease stage III.
Condition: Fair
Diet: Diabetic, Carb Controlled
Activity: As tolerated
Blood Work: Please PCP to order CBC, BMP within 1 week
Activity Restrictions/Additional Instructions:
Wound Care Instructions Right Ankle Wound- Clean with normal saline or soap and water. Apply Hydrogel and cover with clean dressing such as silicone border foam. Change daily and PRN drainage.
Left Posterior Leg Wound- Clean with normal saline and apply adaptic and silicone border foam. Change daily and PRN for drainage.
Referrals:
Jody Guzman CRNP [Family Provider, Family Practice] - in less than 1 week
Prescriptions:
New
amlodipine 5 mg Tablet
5 mg PO DAILY 30 Days Qty: 30 0RF
dicloxacillin 250 mg Capsule
500 mg PO Q6 7 Days Qty: 56 0RF
Continued
Eliquis 5 mg Tablet
2.5 mg PO BID
insulin aspart U-100 [Novolog U-100 Insulin aspart] 100 unit/mL Solution
1 sliding scale dose continuous subcutaneous infusion DIRECTED
Rx Instructions:
18-25 units per day. Pt own insulin pump.
tramadol 50 mg Tablet
50 mg PO HSPRN PRN (Reason: pain)
levothyroxine 125 mcg tablet
875 mcg PO BROWN
Rx Instructions:
Weekly on Sundays
digoxin 125 mcg (0.125 mg) tablet
125 mcg PO DAILY
Multi Vitamin
PO DAILY
vit D3-vit K2-ca fructoborate
PO DAILY
Vit C(ascorb.calcium)(mv-mins)
PO DAILY
red yeast rice
600 mg PO DAILY
milk thistle
100 mg PO DAILY
Discharge Orders:
Discharge Patient (As Directed); Ordered 02/07/25
Ordered By: Flakito Crain
Discharge Date and Time
Discharge Date/Time: 02/07/25 20:00
Print Language: CHINESE
[2025-02-07 12:14] LABS: Glucose - Point of Care 108 mg/dl (70-99)
[2025-02-07] MEDS: LANOXIN 125 MCG PO (12:46)
--- NOTE | 2025-02-07 13:45 | CM ---
Patient changed her mind and requested referral to [facility]. CM sent tt to patient liaison with [facility] and they will follow for discharge planning needs.
Plan; home with [facility]
--- NOTE | 2025-02-07 14:08 | VNURNOTE ---
Home Health Liaison met with patient at bedside to discuss [facility] nurse/therapy, visits, schedule and homebound status. Patient is agreeable and understands that visits at home will be 2-3 x per week to assess and teach medical management. Patient
is aware that [facility] will contact them for start of care within a week after discharge from . Provided contact number for [facility].
PM [facility] referral completed in [facility].
[2025-02-07 15:40] VITALS: BP 143/57
[2025-02-07 16:50] LABS: Glucose - Point of Care 165 mg/dl (70-99)
[2025-02-07] MEDS: DILAUDID 0.25 MG IV (17:33)
== END 2025-02-07 20:00 | disposition home or self-care (01) | DRG 603 ==
LOC: 4 WEST ACU 18:34
PROVIDERS: Family Medicine; Physician Assistant; Physician Assistant Medical; ADMITTING PHYSICIAN Hospitalist; ATTENDING PHYSICIAN Hospitalist; CONSULT PHYSICIAN Student in an Organized Health Care Education/Training Program; EMERGENCY PHYSICIAN Emergency Medicine; FAMILY PHYSICIAN Nurse Practitioner Family
DX: L03.116 Cellulitis of left lower limb (principal); N18.30 Chronic kidney disease, stage 3 unspecified; I12.9 Hypertensive chronic kidney disease with stage 1 through stage 4 chronic kidney disease, or unspecified chronic kidney disease; E11.22 Type 2 diabetes mellitus with diabetic chronic kidney disease; I48.0 Paroxysmal atrial fibrillation; E03.9 Hypothyroidism, unspecified; E87.5 Hyperkalemia; Z85.038 Personal history of other malignant neoplasm of large intestine; Z85.118 Personal history of other malignant neoplasm of bronchus and lung; Z85.42 Personal history of malignant neoplasm of other parts of uterus; Z87.891 Personal history of nicotine dependence; Z66 Do not resuscitate; Z79.01 Long term (current) use of anticoagulants; Z79.4 Long term (current) use of insulin; Z79.890 Hormone replacement therapy
CPT/HCPCS: 11042; 80048; 80053; 82962; 83735; 84145; 85025; 85027; 93005; 96365; 96375; 97110; 97162; 99213; 99284

== ENCOUNTER → 2025-02-11 16:06 | Outpatient (REF) | payer MEDICARE, OTHER, SELFPAY ==
[2025-02-11 17:46] LABS: Potassium 5.0 mmol/L (3.5-5.1)
== END ==
LOC: REG 16:06
PROVIDERS: ATTENDING PHYSICIAN Nurse Practitioner Family
DX: E87.5 Hyperkalemia (principal)
CPT/HCPCS: 36415; 84132

== ENCOUNTER 2025-03-03 11:32 | Outpatient (REF) | payer MEDICARE, OTHER, SELFPAY | END 2025-03-03 23:59 | disposition home or self-care (01) | LOC: WOUND 11:32 | PROVIDERS: ATTENDING PHYSICIAN Registered Nurse; FAMILY PHYSICIAN Nurse Practitioner Family | DX: L97.312 Non-pressure chronic ulcer of right ankle with fat layer exposed (principal); L97.321 Non-pressure chronic ulcer of left ankle limited to breakdown of skin; L03.116 Cellulitis of left lower limb; I73.9 Peripheral vascular disease, unspecified; I87.2 Venous insufficiency (chronic) (peripheral); I48.0 Paroxysmal atrial fibrillation; Z15.060 Genetic susceptibility to colorectal cancer; Z15.068 Genetic susceptibility to other malignant neoplasm of digestive system; Z15.07 Genetic susceptibility to malignant neoplasm of urinary tract; Z15.09 Genetic susceptibility to other malignant neoplasm; E11.9 Type 2 diabetes mellitus without complications; Z79.4 Long term (current) use of insulin | CPT/HCPCS: 99213 ==

== ENCOUNTER 2025-03-10 13:24 | Outpatient (REF) | payer MEDICARE, OTHER, SELFPAY | END 2025-03-10 23:59 | disposition home or self-care (01) | LOC: WOUND 13:24 | PROVIDERS: ATTENDING PHYSICIAN Registered Nurse; FAMILY PHYSICIAN Nurse Practitioner Family | DX: L97.312 Non-pressure chronic ulcer of right ankle with fat layer exposed (principal); L97.321 Non-pressure chronic ulcer of left ankle limited to breakdown of skin; L03.116 Cellulitis of left lower limb; I73.9 Peripheral vascular disease, unspecified; I87.2 Venous insufficiency (chronic) (peripheral); I48.0 Paroxysmal atrial fibrillation; Z15.060 Genetic susceptibility to colorectal cancer; Z15.068 Genetic susceptibility to other malignant neoplasm of digestive system; Z15.07 Genetic susceptibility to malignant neoplasm of urinary tract; Z15.09 Genetic susceptibility to other malignant neoplasm; E11.9 Type 2 diabetes mellitus without complications; Z79.4 Long term (current) use of insulin | CPT/HCPCS: 99213 ==

== ENCOUNTER → 2025-03-14 14:50 | Outpatient (REF) | payer MEDICARE, OTHER, SELFPAY | LOC: RAD 14:50 | PROVIDERS: ATTENDING PHYSICIAN Registered Nurse; FAMILY PHYSICIAN Nurse Practitioner Family | DX: L97.312 Non-pressure chronic ulcer of right ankle with fat layer exposed (principal) | CPT/HCPCS: 93925 ==

== ENCOUNTER 2025-03-22 13:19 | Outpatient (REF) | payer MEDICARE, OTHER, SELFPAY | END 2025-03-22 23:59 | disposition home or self-care (01) | LOC: WOUND 13:19 | PROVIDERS: ATTENDING PHYSICIAN Registered Nurse; FAMILY PHYSICIAN Nurse Practitioner Family | DX: L97.312 Non-pressure chronic ulcer of right ankle with fat layer exposed (principal); L97.321 Non-pressure chronic ulcer of left ankle limited to breakdown of skin; L03.116 Cellulitis of left lower limb; I73.9 Peripheral vascular disease, unspecified; I87.2 Venous insufficiency (chronic) (peripheral); Z15.060 Genetic susceptibility to colorectal cancer; Z15.068 Genetic susceptibility to other malignant neoplasm of digestive system; Z15.07 Genetic susceptibility to malignant neoplasm of urinary tract; Z15.09 Genetic susceptibility to other malignant neoplasm; E11.9 Type 2 diabetes mellitus without complications; I48.0 Paroxysmal atrial fibrillation; Z79.4 Long term (current) use of insulin | CPT/HCPCS: 99213 ==